=== PATIENT | female | born 1955 | race Caucasian/White ===

== ENCOUNTER 2023-12-15 09:58 | Outpatient (REF) | payer BC, MEDICARE, SELFPAY ==
--- NOTE | ~2023-12-15 | XR_ITS ---
Exam: Bilateral knees INDICATION: Bilateral knee pain COMPARISON: None TECHNIQUE: 3 views each knee FINDINGS: Right knee: No fracture or dislocation. Alignment and articulations maintained. No significant joint space narrowings. Chondrocalcinosis. Left knee: No fracture, dislocation or joint effusion. Chondrocalcinosis. XR/XR knee LT 3V IMPRESSION: No acute bony pathology bilateral knees. Bilateral chondrocalcinosis. Electronically signed by: Nae Ren MD 01/12/2024 10:12 AM EDT
--- NOTE | ~2023-12-15 | XR_ITS ---
Exam: Bilateral knees INDICATION: Bilateral knee pain COMPARISON: None TECHNIQUE: 3 views each knee FINDINGS: Right knee: No fracture or dislocation. Alignment and articulations maintained. No significant joint space narrowings. Chondrocalcinosis. Left knee: No fracture, dislocation or joint effusion. Chondrocalcinosis. XR/XR knee RT 3V IMPRESSION: No acute bony pathology bilateral knees. Bilateral chondrocalcinosis. Electronically signed by: Nae Rne MD 01/12/2024 10:12 AM EDT
== END 2023-12-15 09:59 | disposition home or self-care (01) ==
LOC: HO.HOSX 09:58
PROVIDERS: Visit Provider Orthopaedic Surgery
DX: M25.562 Pain in left knee (principal); M25.561 Pain in right knee; M11.262 Other chondrocalcinosis, left knee; M11.261 Other chondrocalcinosis, right knee
CPT/HCPCS: 20610; 73562; J1010

== ENCOUNTER 2023-12-15 13:02 | Outpatient (AMB) | payer MEDICARE, BC, SELFPAY ==
--- NOTE | 2023-12-15 13:15 | MHC.OFFVIS ---
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 Patient reports a fall about 2 months ago after she stepped off a curb, fell and landed on rocks. Her pain is constant and fluctuates in intensity. Seen at previous office where she was prescribed meloxicam with no relief. She has had cortisone injections in the past which gave her fairly relief. She is currently undergoing treatment for breast cancer and pulmonary hypertension in [place]. Allergies pseudoephedrine [From [facility]] Allergy (Verified 12/15/23 13:25) SOB [facility] Surgical History (Updated 12/15/23 @ 13:27 by JERALD Edmondson) History of partial mastectomy of right breast Social History (Updated 12/15/23 @ 13:27 by JERALD Edmondson) Patient Tobacco Use Status: Never used Tobacco Current occupational status: retired Physical Exam Const Other: Well-nourished well-developed very friendly female awake alert and oriented x3 in no acute distress Extrem Other: Bilateral lower extremity examination shows good capillary refill, no skin lesions noted, normal sensation light touch Bilateral knee examination shows minimal effusions, mild crepitus with range of motion, pain with range of motion, no instability Office Procedures Joint Injection/Aspiration Joint Injection/Aspiration Primary Site: left knee Prep: site was prepped using aseptic technique Injected: 40 mg of, DepoMedrol and 1% plain lidocaine Procedure: The patient tolerated the procedure well Coding 15852 - Large joint Procedure code (CPT) selection complete Joint Injection/Aspiration Joint Injection/Aspiration Primary Site: right knee Prep: site was prepped using aseptic technique Injected: 40 mg of, DepoMedrol and 1% plain lidocaine Procedure: The patient tolerated the procedure well Coding 94265 - Large joint Procedure code (CPT) selection complete Results Reviewed Results Reviewed: X-rays of the patient's bilateral knee show mild joint space narrowing, no acute bony abnormalities Assessment & Plan Assessment & Plan (1) Left knee pain: Code(s): M25.562 - Pain in left knee Category: Medical (2) Right knee pain: Code(s): M25.561 - Pain in right knee Category: Medical Plan Ms. Reaves presents with bilateral knee pains due to degenerative joint disease. I had a lengthy discussion with the patient regarding options. She wishes to hold off on surgery for as long as possible. I agree with this plan. The risks and benefits of bilateral knee cortisone injections were discussed at length with the patient. Patient wished to proceed. She tolerated the injections well. She will continue with her activity modifications. She will follow up with me on an as-needed basis should her symptoms not plateau at an unacceptable level over the next few months. Feel free to call me at any time should questions regarding her orthopedic management arise. I spent 21 minutes in reviewing the patient's records and imaging studies, seeing the patient and documenting in the medical record. Orders: Orders XR knee LT 3V Today M25.562 - Pain in left knee XR knee RT 3V Today M25.561 - Pain in right knee AMB Joint Injection/Aspiration Today M25.562 - Pain in left knee AMB Joint Injection/Aspiration Today M25.561 - Pain in right knee Coding Level of Care Code Est Pt Level 3 (11242) Diagnoses Left knee pain M25.562 Right knee pain M25.561 CPT Codes Coding - 56751 Large joint: 85007 - Large joint ([id number]) Coding - 55111 Large joint: 47063 - Large joint ([id number])
== END 2023-12-15 13:50 | disposition home or self-care (01) ==
PROVIDERS: PCP Internal Medicine Endocrinology, Diabetes & Metabolism; Visit Provider Orthopaedic Surgery
DX: M25.562 Pain in left knee (principal); M25.561 Pain in right knee
CPT/HCPCS: 20610; 99213

== ENCOUNTER 2024-03-22 13:01 | Outpatient (AMB) | payer BC, MEDICARE, SELFPAY ==
--- NOTE | 2024-03-22 13:15 | MHC.OFFVIS ---
Intake Visit Reasons: Left knee pain and giving way Intake Note: Elda a 68 year old female who presents with complaints of progressively worsening bilateral knee pains and giving way, left greater than right. The patient states that she 1st fell approximately 1 year ago. She twisted her left knee and had acute onset of pain. She then fell a 2nd time approximately 6 weeks ago. She states that her left knee gave out prior to her fall. She has done physical therapy exercises which aggravated her pain. She has failed the last 6 weeks of conservative treatment which has consisted of a home physical therapy program, topical creams, Tylenol and anti-inflammatory medicines. She has had cortisone injections in the past which gave her only temporary relief. She states that her left knee will give out several times per day. Allergies pseudoephedrine [From [facility]] Allergy (Verified 03/22/24 13:17) SOB Medication List - Last Reconciled 03/23/24 by Fernando Crandall MD albuterol sulfate 90 mcg/actuation inhalation atorvastatin 20 mg PO DAILY epoprostenol (Veletri) mg continuous IV infusion fluoxetine mg PO fluticasone propion-salmeterol 250-50 mcg/dose (Wixela Inhub) 1 ea inhalation BID fluticasone propionate 50 mcg/actuation sprays intranasal folic acid 1 mg PO DAILY insulin aspart U-100 (Novolog U-100 Insulin aspart) subcut insulin NPH isoph U-100 human (Novolin N NPH U-100 Insulin isophane) units subcut ipratropium-albuterol 0.5 mg-3 mg(2.5 mg base)/3 mL mL inhalation QID irbesartan 300 mg PO DAILY levothyroxine 75 mcg PO DAILY loperamide mg PO lorazepam mg PO metformin ER 1,000 mg PO BID montelukast 10 mg PO DAILY potassium citrate ER 10 mEq PO DAILY tadalafil (pulm. hypertension) 20 mg PO Q OTHER DAY tramadol 50 mg PO BID PRN valacyclovir 1,000 mg PO DAILY PFSH Surgical History History of partial mastectomy of right breast Social History Patient Tobacco Use Status: Never used Tobacco Current occupational status: retired Physical Exam Const Other: Well-nourished well-developed very friendly female awake alert and oriented x3 in no acute distress Extrem Other: Bilateral lower extremity examination shows good capillary refill, no skin lesions noted, normal sensation light touch Left knee examination shows a minimal effusion, mild crepitus with range of motion, tenderness along her medial joint line, positive Scooter's test, no instability Office Procedures AMB Joint Injection/Aspiration Joint Injection/Aspiration Primary Site: left knee Prep: site was prepped using aseptic technique Injected: 40 mg of, DepoMedrol and 1% plain lidocaine Procedure: The patient tolerated the procedure well Coding - Large joint Procedure code (CPT) selection complete Results Reviewed Results Reviewed: X-rays of the patient's bilateral knees show mild diffuse joint space narrowing, no acute bony abnormalities Assessment & Plan Assessment & Plan (1) Left knee pain: Code(s): M25.562 - Pain in left knee Category: Medical Plan Ms. Reaves presents with progressively worsening bilateral knee pains and mechanical symptoms, left greater than right, most likely due to tearing of her medial menisci. I had a lengthy discussion with the patient regarding the treatment options. The risks and benefits of a left knee cortisone injection were discussed at length with the patient. The patient wished to proceed. She tolerated the injection well. I will also send the patient for an MRI of her left knee for further evaluation. I will see her back once the MRI is completed to discuss the findings and treatment options. Feel free to call me at any time should questions regarding her orthopedic management arise. I spent 21 minutes in reviewing the patient's records and imaging studies, seeing the patient and documenting in the medical record. Orders: Orders XR knee RT 3V 03/22/24 M25.561 - Pain in right knee MR knee LT wo con Today S83.242A - Other tear of medial meniscus, current injury, left knee, initial encounter AMB Joint Injection/Aspiration 03/22/24 M25.562 - Pain in left knee XR knee LT 3V 03/22/24 M25.562 - Pain in left knee Coding Level of Care Code Est Pt Level 3 (57568) Complex EM visit Add On G2211 Diagnoses Left knee pain M25.562 CPT Codes Coding - Large joint: 16986 - Large joint ([id number])
== END 2024-03-22 13:46 | disposition home or self-care (01) ==
PROVIDERS: PCP Internal Medicine Endocrinology, Diabetes & Metabolism; Visit Provider Orthopaedic Surgery
DX: M25.562 Pain in left knee (principal)
CPT/HCPCS: 20610; 99213

== ENCOUNTER 2024-03-22 14:17 | Outpatient (REF) | payer MEDICARE, BC, SELFPAY | END 2024-03-22 14:18 | disposition home or self-care (01) | LOC: HO.HOSX 14:17 | PROVIDERS: Visit Provider Orthopaedic Surgery | DX: M25.561 Pain in right knee (principal); M25.562 Pain in left knee | CPT/HCPCS: 20610; 73562; J1010; J2003 ==

== ENCOUNTER 2024-06-21 13:13 | Outpatient (AMB) | payer MEDICARE, BC, SELFPAY ==
--- NOTE | 2024-06-21 13:17 | A.OFFVIS_ITS ---
Intake Visit Reasons: Right knee pain Intake Note: Elda a 69 year old female who presents with complaints of right knee pain. The patient was given a cortisone injection into her left knee at her last visit. She denies any left knee pain. She describes her right knee pain as sharp in nature. She has tried Tylenol and anti-inflammatory medicines which gave her minimal relief. She wishes to hold off on surgery if at all possible. Allergies pseudoephedrine [From [facility]] Allergy (Verified 06/21/24 13:17) SOB Medication List - Last Reconciled 06/21/24 by Fernando Crandall MD albuterol sulfate 90 mcg/actuation inhalation atorvastatin 20 mg PO DAILY doxycycline hyclate mg PO epoprostenol (Veletri) mg continuous IV infusion fluoxetine mg PO fluticasone propion-salmeterol 250-50 mcg/dose (Wixela Inhub) 1 ea inhalation BID fluticasone propionate 50 mcg/actuation sprays intranasal folic acid 1 mg PO DAILY insulin aspart U-100 (Novolog U-100 Insulin aspart) subcut insulin NPH isoph U-100 human (Novolin N NPH U-100 Insulin isophane) units subcut ipratropium-albuterol 0.5 mg-3 mg(2.5 mg base)/3 mL mL inhalation QID irbesartan 300 mg PO DAILY levothyroxine 75 mcg PO DAILY loperamide mg PO lorazepam mg PO metformin ER 1,000 mg PO BID montelukast 10 mg PO DAILY potassium citrate ER 10 mEq PO DAILY tadalafil (pulm. hypertension) 20 mg PO Q OTHER DAY tramadol 50 mg PO BID PRN valacyclovir 1,000 mg PO DAILY PFSH Surgical History History of partial mastectomy of right breast Social History Patient Tobacco Use Status: Never used Tobacco Current occupational status: retired Physical Exam Const Other: Well-nourished well-developed very friendly female awake alert and oriented x3 in no acute distress Extrem Other: Bilateral lower extremity examination shows good capillary refill, no skin lesions noted, normal sensation light touch Right knee examination shows a minimal effusion, palpable crepitus with range of motion, pain with range of motion, no instability Office Procedures AMB Joint Injection/Aspiration Joint Injection/Aspiration Primary Site: right knee Injected: 40 mg of, DepoMedrol and 1% plain lidocaine Procedure: The patient tolerated the procedure well Coding - Large joint Procedure code (CPT) selection complete Results Reviewed Results Reviewed: X-rays of the patient's right knee taken previously show joint space narrowing, subchondral sclerosis, bony abnormalities Assessment & Plan Assessment & Plan (1) Arthritis of right knee: Code(s): M17.11 - Unilateral primary osteoarthritis, right knee Category: Medical (2) Right knee pain: Code(s): M25.561 - Pain in right knee Category: Medical Plan Ms. Reaves presents with right knee pain due to degenerative joint disease. The risks and benefits of a right knee cortisone injection were discussed at length with the patient. The patient wished to proceed. She tolerated the injection well. She will continue with her home exercise program. She will contact me prior to her follow-up appointment in 3 months should any questions or concerns arise. Feel free to call me at any time should questions regarding her orthopedic management arise. I spent 20 minutes in reviewing the patient's records and imaging studies, seeing the patient and documenting in the medical record. Orders: Orders AMB Joint Injection/Aspiration Today M17.11 - Unilateral primary osteoarthritis, right knee Coding Level of Care Code Est Pt Level 3 (64226) Complex EM visit Add On G2211 Diagnoses Arthritis of right knee M17.11 Right knee pain M25.561 CPT Codes Coding - Large joint: 72811 - Large joint ([id number])
--- OUTSIDE RECORDS SUMMARY | 2024-06-21 14:18 | XMS_ITS | Clinical Summary ---
Author Organization [facility] Address [address] [place] [address] Care Team Providers Care Diplomatic Courier Name Role Phone Nimo Dimas MD Primary Care Provid er Allergies Active Allergy Reactions Criticality Noted Date Comments Fenofibrate 12/18/2021 Nitrofurantoin 12/18/2021 Nystatin 12/18/2021 Pseudoephedrine Palpitations,Other ( See Comments),Shortness Of Breath High 05/10/2016 Medications Medication Sig Dispensed Refills Start Date End Date Status albuterol 108 (90 Base) MCG/ACT inhaler Inhale into the lungs. 0 07/12/2018 Active Aspirin Low Dose 81 MG EC tablet Take 1 tablet (81 mg total) by mouth daily. 0 04/17/2022 Active dilTIAZem (CARDIZEM CD) 240 MG 24 hr capsule Take 1 capsule (240 mg total) by mouth daily. 0 03/18/2022 Active dulaglutide (Trulicity) 0.75 MG/0.5ML subcutaneous pen-injector Inject 0.5 mL (0.75 mg total) under the skin. 0 06/08/2017 Active empagliflozin (Jardiance) 10 MG tablet Take by mouth. 0 09/13/2021 Active FLUoxetine (PROzac) 10 MG capsule Take by mouth. 0 10/17/2021 Active fluticasone-salmeterol (Advair HFA) 115-21 MCG/ACT inhaler Inhale into the lungs. 0 11/27/2021 Active glipiZIDE (GLUCOTROL) tablet 5 mg Take by mouth. 0 10/17/2021 Active Insulin NPH Human, Isophane, (NOVOLIN N SC) Inject under the skin. 0 11/13/2021 Active ipratropium-albuterol (DUO-NEB) 0.5-2.5 mg/mL nebulizer Inhale 3 mL into the lungs. 0 10/09/2021 Active irbesartan (AVAPRO) 300 MG tablet TAKE 1 TABLET BY MOUTH ONCE DAILY DIRECTED FOR 90 DAYS 0 04/11/2022 Active levothyroxine (SYNTHROID) tablet 150 mcg Take 1 tablet (150 mcg total) by mouth. 0 11/22/2021 Active LORazepam (ATIVAN) 0.5 MG tablet Take by mouth. 0 06/08/2017 Active meloxicam (MOBIC) 15 MG tablet Take 1 tablet (15 mg total) by mouth daily. 0 04/12/2022 Active metFORMIN (GLUCOPHAGE-XR) ER 24 hr tablet 500 mg Take by mouth. 0 10/07/2021 Acti ve montelukast (SINGULAIR) 10 MG tablet Take 1 tablet (10 mg total) by mouth daily. as directed 0 03/07/2022 Active oxybutynin (DITROPAN) 5 MG tablet Take 1 tablet (5 mg total) by mouth. 0 11/15/2021 Active potassium citrate (UROCIT-K) 10 MEQ (1080 MG) SR tablet Take 1 tablet (10 mEq total) by mouth. 0 06/21/2020 Active traMADol (ULTRAM) 50 MG tablet Take 50 mg by mouth. 0 12/02/2021 Active Family History Medical History Relation Name Comments Diabetes Brother Hypertension Brother Diabetes Mother Hypertension Mother Relation Name Status Comments Brother Mother Social History Tobacco Use Types Packs/Day Years Used Date Smoking Tobacco: Never Assessed Sex and Gender Information Value Date Recorded Sex Assigned at Not on file Gender Identity Not on file Sexual Orientation Not on file Job Start Date Occupation Industry Not on file Not on file Not on file Last Filed Vital Signs Vital Sign Reading Time Taken Comments Blood Pressure - - Pulse - - Temperature - - Respiratory Rate - - Oxygen Saturation - - Inhaled Oxygen Concentration - - Weight 116.6 kg (257 lb) 05/28/2022 11:04 AM EST Height 160 cm (5' 3 ) 05/28/2022 11:04 AM EST Body Mass Index 45.53 05/28/2022 11:04 AM EST Plan of Treatment Health Maintenance Due Date Last Done Comments Hepatitis C Screening 1955 COVID-19 Vaccine (#1) 1956 Depression Screening 1968 BMI Counseling 1974 Preventative Health Evaluation 1974 DTap / Tdap / Td (1 - Tdap) 1975 Colon Cancer Screening (Colonoscopy) 2001 Breast Cancer Screening (Mammogram) 2006 Shingrix-Zoster Vaccine (1 of 2) 2006 Fall Risk Assessment 2021 Osteoporosis Screening (DEXA Scan) 2021 Pneumococcal Vaccine (2 of 2 - PPSV23 or PCV20) 2021 07/20/2019 Influenza Vaccine (#1) 2024 RSV Adult > 60+ Yrs or Pregn ant (1 - 1-dose 75+ series) 2031 Hepatitis B Vaccines Aged Out No long er eligible based on patient's age to complete this topic RSV Ped < 20 months Aged Out No longe r eligible based on patient's age to complete this topic Care Teams Diplomatic Courier Relationship Specialty Start Date End Date Nimo Dimas MD [address] [place] [address] Drive [address] [place] [address] PCP - General Gastroenterology 05/01/22
--- OUTSIDE RECORDS SUMMARY | 2024-06-21 14:18 | XMS_ITS | Data Portability ---
Author Organization [place] [facility] Ronald Nichole AONE [place] Address [address] [facility] [address] [place] [address] Care Team Providers Care Rugby League Footballer Name Role Phone ROOSEVELT GARSIA Primary Care Provider [phone] ROOSEVELT GARSIA Primary Care Provider Assessment Encounter Date Assessment Date Assessment LastModified by Organization Details LastModified Time 02/25/2023 02/25/2023 57-year-old female with ongoing right knee pain with possible meniscus tearing. I had discussion with the patient. Management. She opted for cortisone injection at today's visit. Verbal consent was obtained procedure was then carried out she tolerated this well aftercare instructions were discussed in detail. I will send her for a formal MRI for further evaluation. We will delay this by 1 week since she had a cortisone injection today. I will see her back shortly thereafter if surgical consultation is indicated I will refer her to Dr. Sainz. The patient agrees with above-noted plan. Indirect care and treatment in conjunction with Dr. Schreiber Additional treatment plan discussed with the patient (only initiated if in boldface font) otherwise not applicable. Treatment may include the following; - Provider focused nonsteroidal anti-inflammatory regimen (discussed were the pros, cons, benefits and risks as well as any black box warnings) in patients over 60 years old they should be very cautious in taking these medications due to potential decreased kidney function and or elevated blood pressure. - Analgesic pain medication for pain suppression (discussed were the pros, cons, benefits and risks as well as any black box warnings) - The use of topical pain relieving medication were discussed - The use of ice to decrease inflammation and pain - The use of assistive ambulatory devices for ambulation and fall prevention - Formal specific guided physical therapy program I reviewed my findings at length with the patient today. ? ? ?We discussed the nature and etiology of this problem along with current treatment options. We discussed the expected course and outcomes and what to expect. We also discussed risks and benefits. ? ? ? All of their questions were answered today, and there was exhibited understanding and comprehension of all that was discussed. Time Spent: 10 minutes were spent reviewing previous imaging and charting. ? ? ?10 minutes were spent obtaining patient history. ? ? ?5 minutes were spent on physical exam. ? ? ?5? ? ?minutes were spent explaining diagnosis and assessment. Today's documentation was made using voice recognition software. This note may contain grammatical errors secondary to the software. Not available 02/26/2023 08:01:27 03/18/2023 03/18/2023 This is a very pleasant 67-year-old female following up on her MRI results on her right knee she is 100% asymptomatic since her cortisone injection however. 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 This point she would like to hold off on intervention. 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 She states that she would like to have a follow-up visit which will be towards the end of March. She can certainly take [id number] pain medication if her symptoms do return and she should contact my office immediately. She agrees with this plan. Patient was seen and evaluated by Richard Montoya PA-C in indirect conjuction with Documenting Provider: Alberto Sainz MD . He/She agrees with history, physical examination, tests/diagnostic imaging, and treatment plan. Additional treatment plan discussed with the patient (only initiated if in boldface font) otherwise not applicable. Treatment may include the following; - Provider focused nonsteroidal anti-inflammatory regimen (discussed were the pros, cons, benefits and risks as well as any black box warnings) in patients over 60 years old they should be very cautious in taking these medications due to potential decreased kidney function and or elevated blood pressure. - Analgesic pain medication for pain suppression (discussed were the pros, cons, benefits and risks as well as any black box warnings) - The use of topical pain relieving medication were discussed - The use of ice to decrease inflammation and pain - The use of assistive ambulatory devices for ambulation and fall prevention - Formal specific guided physical therapy program I reviewed my findings at length with the patient today. ? ? ?We discussed the nature and etiology of this problem along with current treatment options. We discussed the expected course and outcomes and what to expect. We also discussed risks and benefits. ? ? ? All of their questions were answered today, and there was exhibited understanding and comprehension of all that was discussed. Time Spent: 10 minutes were spent reviewing previous imaging and charting. ? ? ?10 minutes were spent obtaining patient history. ? ? ?5 minutes were spent on physical exam. ? ? ?5? ? ?minutes were spent explaining diagnosis and assessment. Today's documentation was made using voice recognition software. This note may contain grammatical errors secondary to the software. 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 She is treated conservatively she has been asymptomatic should her symptoms return she will contact our office no treatment at today's visit. She agrees to this plan. Patient was seen and evaluated by Richard Montoya PA-C in indirect conjuction with Documenting Provider: Jose Schreiber MD . He/She agrees with history, physical examination, tests/diagnostic imaging, and treatment plan. Additional treatment plan discussed with the patient (only initiated if in boldface font) otherwise not applicable. Treatment may include the following; - Provider focused nonsteroidal anti-inflammatory regimen (discussed were the pros, cons, benefits and risks as well as any black box warnings) in patients over 60 years old they should be very cautious in taking these medications due to potential decreased kidney function and or elevated blood pressure. - Analgesic pain medication for pain suppression (discussed were the pros, cons, benefits and risks as well as any black box warnings) - The use of topical pain relieving medication were discussed - The use of ice to decrease inflammation and pain - The use of assistive ambulatory devices for ambulation and fall prevention - Formal specific guided physical therapy program I reviewed my findings at length with the patient today. ? ? ?We discussed the nature and etiology of this problem along with current treatment options. We discussed the expected course and outcomes and what to expect. We also discussed risks and benefits. ? ? ? All of their questions were answered today, and there was exhibited understanding and comprehension of all that was discussed. Time Spent: 10 minutes were spent reviewing previous imaging and charting. ? ? ?10 minutes were spent obtaining patient history. ? ? ?5 minutes were spent on physical exam. ? ? ?5? ? ?minutes were spent explaining diagnosis and assessment. Today's documentation was made using voice recognition software. This note may contain grammatical errors secondary to the software. Not available 06/03/2023 10:55:31 10/29/2023 10/29/2023 68-year-old female with right knee pain. History, examination and x-rays are consistent with contusion of right knee superimposed on degenerative changes of both medial and lateral meniscus. She is clinically showing signs of improvement. After discussion regarding treatment options she will be provided a prescription for meloxicam to use as an alternative to the ibuprofen. She declines my offer of physical therapy and follow up since she is dealing with a range of other major medical issues. Follow-up therefore is as needed. This patient was seen and evaluated by Richard Stevenson MS, PA-C in indirect conjunction with documenting/super vising provider Jose Schreiber MD. He agrees with history, physical examination, tests/diagnostic imaging, and treatment plan. This document was generated using voice recognition software. As a result, there may be unintended spelling, grammatical and/or textual errors. Not available 10/29/2023 10:55:25 Plan of Treatment Reminders Order Date Submit Date Provider Last Modified By Organization Details Last Modified Time Details Appointments None recorded. Lab None recorded. Referral None recorded. Procedures None recorded. Surgeries None recorded. Imaging XR, knee, 4 or more view 2022 023 [email or web address] 2 [facility], [address], [place], [address], 3 12:38:21 MRI, knee, w/o contrast - R/O Meniscus tear. Pt had Cortisone inj on 02/25/2023 (Delay MRI 1 week from this date) 2022 023 [facility], [address], [place], [address], 3 14:07:10 XR, knee, 4 or more view 2023 024 [email or web address] 2 [facility], [address], [place], [address], 4 10:52:28 Medication Orders Kenalog 40 mg/mL suspension for injection [facility]22 [id number] [phone] [place], [address], 3 10:32:46 lidocaine (PF) 10 mg/mL (1 %) injection solution 2022 023 [id number], [phone] [place], [address], 3 10:32:51 meloxicam 15 mg tablet 2023 024 [facility] #[id number], [phone] [place], [address], 4 10:55:43 Patient TargetsNo targets recorded. Patient Instructions Encounter Date Encounter Id Patient Instructions Last Modified By Organization Details Last Modified Time 02/25/2023 [id number] You have been provided with a cortisone injection in order to reduce the pain and inflammation that you are experiencing. The injection consists of two medications. Cortisone (an anti-inflammatory that will take 48-72 hours to take effect) and Lidocaine (a numbing agent that will last 2-3 hours). Please note that not everyone will have a lasting response following the injection. PATIENT INSTRUCTIONS Once the Lidocaine wears off, you may have an increase in your pain. I recommend icing the affected area for 20 minutes 3-4 times per day. It is recommended that you refrain from any high level activities using the joint or limb that was injected for approximately 24-48 hours. Normal day-to-day activities are generally not a problem. POSSIBLE SIDE EFFECTS Individuals with dark complexions may experience some skin discoloration locally at the site of the injection. There is the possibility of an increase in discomfort within 48 hours following the injection. This is called a ? f lare? . To help minimize the chances of this, please see the post-injection instructions above. There is a less than 1% chance of an infection. If you notice any signs of infection (redness, warmth, drainage, fever greater than 100 degrees) please call our office or contact us through the portal MARCY. Not available 02/26/2023 08:01:45 X-rays at today' s visit reveal well-maintained joint space subtle chondrocalcinosis on AP and Flynn view, lateral view well-maintained joint space within the patellofemoral compartment as well as on sunrise view. No acute bony abnormality. Not available 02/26/2023 08:02:51 10/29/2023 [id number] {{2 3 4 5 6 7* 8 9}} view X-ray study obtained during today's office encounter show evidence of {{mild* moderate celi re}} {{right left bilatera l*}} {{hip knee*}} osteoarthritis. There is joint space narrowing, subchondral sclerosis and marginal osteophytosis. Kellgren-Gilbert grade {{0 1* 2 3 4}}. No evidence of acute fracture or osteolytic findings. From a trauma standpoint, there is no evidence for fracture or dislocation. Not available 10/29/2023 10:54:22 Reason for Referral None Reported. Results Created Date Observation Date Name Description Value Unit Range Abnormal Flag Note LastModifiedBy Organization Detail LastModifiedTime 03/06/20 23 MRI, knee, w/o contr ast No observ ation record ed. [email or web address] [facility] [address] [facility], [place], [address], 03/06/2023 14:07:10 Result Notes None recorded. Problems Name Problem SNOMED Code Status Onset Date Resolution Date Notes Provider Name and Address Organization Details Recorded Time Chronic instability of right knee joint [id number] 06 Active 2022 RICHARD MONTOYA PA-C [address], [place], [address], [place] [facility] 3 11:22:27 Derangement of medial meniscus 229892098 Active 2022 RICAHRD MONTOYA PA-C [address], [place], [address], [place] [facility] 3 10:51:12 Contusion of right knee 0111035991119 9104 Active 2023 RICHARD STEVENSON PA-C [address], [place], [address], [place] [facility] 4 10:55:25 Problem Notes None recorded. Procedures Surgical History Date Name Laterality Status Provider Name and Address Organization Details Recorded Time 3 Knee Joint/Bursa Asp & Inj completed RICHARD MONTOYA PA-C [address], [place], [address], [place] [facility] 02/26/2023 07:59:31 section completed Caty Romero [place] - [facility] 02/25/2023 16:19:25 Imaging Results Imaging Date Name Status LastModified by Organiz ation Details LastModified Time 03/06/2023 MRI, knee, w/o contrast completed [email or web address] [facility] [address] [place], [address], 03/06/2023 14:07:10 Procedure Notes None recorded. Medical Equipment None Reported. Allergies Allergen ID Allergen Name Allergen Category Reaction Reaction Severity Criticality Documentation Date Start Date Code Code System Note Provider Name and Address Organization Details Recorded Time 9222 Sudafed medicatio n Not available Not available Not available 02/25/2023 2 RxNorm Caty Chase [facility], [place] [facility] 3 16:12:40 Medications Name Sig Start Date Stop Date Status Note LastModified by Organization Details LastModified Time prednisone 10 mg tablet PLEASE SEE ATTACHED FOR DETAILED DIRECTION S 03/18 completed Not Available Not Available Not Available doxycycline hyclate 100 mg capsule TAKE 1 CAPSULE BY MOUTH TWICE A DAY FOR 5 DAYS 06/03 completed Not Available Not Available Not Available atorvastati n 20 mg tablet TAKE 1 TABLET BY MOUTH EVERY DAY active Not Available Not Available No t Available ipratropium 0.5 mg-albutero l 3 mg (2.5 mg base)/3 mL nebulizatio n soln INHALE THE CONTENTS OF 1 VIAL VIA NEBULIZER 4 TIMES DAILY. J45.909 active Not Available Not Available No t Available azithromyci n 250 mg tablet TAKE 2 TABLETS BY MOUTH TODAY, THEN TAKE 1 TABLET DAILY FOR 4 DAYS DIRECTED active Not Available Not Available No t Available Novolin N NPH U-100 Insulin isophane 100 unit/mL subcutaneou s susp INJECT 20 UNITS SUBCUTANE SOULY EVERY DAY IN THE MORNING AND 60 UNITS EVERY DAY IN THE EVENING. active Not Available Not Available No t Available diltiazem CD 240 mg capsule,ext ended release 24 hr TAKE 1 CAPSULE BY MOUTH EVERY DAY 03/18 completed Not Available Not Available Not Available meloxicam 15 mg tablet TAKE 1 TABLET EVERY DAY BY ORAL ROUTE NEEDED. active Not Available Not Available No t Available prednisone 20 mg tablet TAKE 2 TABLETS BY MOUTH DAILY FOR 5 DAYS 10/28 completed Not Available Not Available Not Available aspirin 81 mg tablet,scooter yed release TAKE 1 TABLET BY MOUTH EVERY DAY 10/28 completed Not Available Not Available Not Available tramadol 50 mg tablet TAKE 1 TABLET BY MOUTH EVERY 6 HOURS NEEDED FOR PAIN FOR 3 DAYS active Not Available Not Available No t Available levothyroxi ne 75 mcg tablet TAKE 1 TABLET BY MOUTH EVERY DAY active Not Available Not Available No t Available Kenalog 40 mg/mL suspension for injection Take 1 mL by injection route. 03/18 completed Not Available Not Available Not Available lorazepam 0.5 mg tablet TAKE 1 TABLET BY MOUTH TWICE A DAY NEEDED. MAX DAILY DOSE 2 TABS active Not Available Not Available No t Available Platform Orthopedic SolutionsTouch Ultra Test strips USE TO TEST BLOOD SUGAR TWICE A DAY DIRECTED active Not Available Not Available No t Available potassium citrate ER 10 mEq (1,080 mg) tablet,exte nded release TAKE 1 TABLET BY MOUTH TWICE A DAY active Not Available Not Available No t Available benzonatate 100 mg capsule TAKE 1 CAPSULE BY MOUTH THREE TIMES A DAY NEEDED FOR COUGH FOR 5 DAYS 10/28 completed Not Available Not Available Not Available hydrocortis one 1 % topical cream active Not Available Not Available Not Available cephalexin 500 mg capsule TAKE 1 CAPSULE BY MOUTH TWICE A DAY FOR 7 DAYS active Not Available Not Available No t Available oseltamivir 75 mg capsule TAKE 1 CAPSULE BY MOUTH TWICE A DAY FOR 5 DAYS 03/18 completed Not Available Not Available Not Available neomycin-po lymyxin-dex ameth 3.5 mg/mL-10,00 0 unit/mL-0.1 % eye drops INSTIL 1 DROP INTO BOTH EYES 4 TIMES A DAY FOR 5 DAYS 03/18 completed Not Available Not Available Not Available fluoxetine 10 mg capsule TAKE 2 CAPS BY MOUTH EVERY DAY DIRECTED active Not Available Not Available No t Available hydrocortis one 2.5 % topical cream TAKE 1 APPLICATI ON (TOPICAL) 3 TIMES PER DAY ( NEEDED - SKIN IRRITATIO N) FOR 14 DAYS 03/18 completed Not Available Not Available Not Available montelukast 10 mg tablet TAKE 1 TABLET BY MOUTH EVERY DAY DIRECTED active Not Available Not Available No t Available hydroxyzine HCl 25 mg tablet TAKE 1 TABLET BY MOUTH 3-4 TIMES PER DAY NEEDED FOR ITCHING FOR 5 DAYS 03/18 completed Not Available Not Available Not Available furosemide 20 mg tablet TAKE 1 CAPSULE BY MOUTH ONCE DIRECTED 03/18 completed Not Available Not Available Not Available Novolog U-100 Insulin aspart 100 unit/mL subcutaneou s solution USE 6 TO 14 UNITS SUBCUTANE OUSLY BEFORE MEALS 3 TIMES A DAY active Not Available Not Available No t Available methylpredn isolone 4 mg tablets in a dose pack TAKE 6 TABLETS ON DAY 1 DIRECTED ON PACKAGE AND DECREASE BY 1 TAB EACH DAY FOR A TOTAL OF 6 DAYS 03/18 completed Not Available Not Available Not Available albuterol sulfate HFA 90 mcg/actuati on aerosol inhaler INHALE 2 PUFFS EVERY 6 HOURS NEEDED active Not Available Not Available No t Available ondansetron 4 mg disintegrat ing tablet TAKE 1 TABLET BY MOUTH EVERY 6 HOURS NEEDED FOR NAUSEA AND VOMITING FOR 3 DAYS 03/18 completed Not Available Not Available Not Available fluticasone propionate 50 mcg/actuati on nasal spray,suspe nsion USE 1 SPRAY IN EACH NOSTRIL TWICE A DAY active Not Available Not Available No t Available metformin ER 500 mg tablet,exte nded release 24 hr TAKE 2 TABLETS BY MOUTH TWICE A DAY DIRECTED active Not Available Not Available No t Available doxycycline hyclate 100 mg tablet TAKE 1 TABLET (ORAL) 2 TIMES PER DAY FOR 10 DAYS LIMITS SUN EXPOSURE WHILE ON THIS ANTIBIOTI C 06/03 completed Not Available Not Available Not Available irbesartan 300 mg tablet TAKE 1 TABLET BY MOUTH ONCE DAILY DIRECTED FOR 90 DAYS active Not Available Not Available No t Available glipizide 5 mg tablet TAKE 2 TABLETS BY MOUTH TWICE A DAY 10/28 completed Not Available Not Available Not Available amoxicillin 875 mg-potassiu m clavulanate 125 mg tablet TAKE 1 TABLET BY MOUTH TWICE A DAY FOR 7 DAYS 03/18 completed Not Available Not Available Not Available amoxicillin 500 mg-potassiu m clavulanate 125 mg tablet TAKE 1 TABLET BY MOUTH EVERY 12 HOURS FOR 10 DAYS 03/18 completed Not Available Not Available Not Available DILT-XR 240 mg capsule, extended release TAKE 1 CAPSULE BY MOUTH EVERY DAY 10/28 completed Not Available Not Available Not Available alprazolam 0.25 mg disintegrat ing tablet TAKE 1 TABLET BY MOUTH DAILY NEEDED (TEMPORAR Y REPLACEME NT FOR LORAZEPAM ) 10/28 completed Not Available Not Available Not Available lidocaine (PF) 10 mg/mL (1 %) injection solution Take 2 mL by injection route. 03/18 completed Not Available Not Available Not Available BD Insulin Syringe Ultra-Fine 1 mL 30 gauge x 1/2 USE SYRINGES TO INJECT INSULIN FOUR TIMES DAILY DX: E11.9 active Not Available Not Available No t Available Advair HFA 115 mcg-21 mcg/actuati on aerosol inhaler INHALE 2 PUFFS TWICE A DAY active Not Available Not Available No t Available Jardiance 10 mg tablet TAKE 1 TABLET BY MOUTH EVERY DAY 03/18 completed Not Available Not Available Not Available Jardiance 25 mg tablet TAKE 1 TABLET BY MOUTH EVERY DAY active Not Available Not Available No t Available tadalafil 20 mg tablet (pulmonary hypertensio n) active Not Available Not Available Not Available Wixela Inhub 250 mcg-50 mcg/dose powder for inhalation INHALE 1 PUFF TWICE A DAY *RINSE MOUTH AND THROAT AFTER* active Not Available Not Available No t Available Trulicity 3 mg/0.5 mL subcutaneou s pen injector INJECT 1 PEN SUBCUTANE OUSLY EVERY WEEK active Not Available Not Available No t Available Trulicity 4.5 mg/0.5 mL subcutaneou s pen injector INJECT 1 PEN SUBCUTANE OUSLY ONCE WEEKLY. active Not Available Not Available No t Available Vitals Date Recorded Body height Provider Name an d Address Organization Details Last Updated DateTime 03/18/2023 175.26 cm [facility] 03/18/2023 10:35:20 Date Recorded Body height Body mass index (BMI) Body weight Provider Name and Address Organization Details Last Updated DateTime 02/25/2023 236.22 cm 20.9 kg/m2 102667.24 g [facility] 02/25/2023 16:15:39 Social History Question Answer Notes LastModified by Organizat ion Details LastModified Time Tobacco Smoking Status Never Smoker [facility] 02/25/2023 16:16:04 What Is Your Level Of Alcohol Consumption? None Information not available 02/25/2023 Do You Use Any Illicit Or Recreational Drugs? No Information not available 02/25/2023 Do You Or Have You Ever Used Any Other Forms Of Tobacco Or Nicotine? No Information not available 02/25/2023 Sex: Unknown Functional Status None recorded. Mental Status None recorded. Family History Relationship Description Onset Age of this Age Resolved Age Notes LastModified by Organization Details LastModified Time Father Complication of anesthesia Not available 02/25 16:16:54 Father Arthritis Not available 02/25/2023 16:17:02 Mother Diabetes mellitus Not available 2022 16:17:13 Mother Hypercholest erolemia Not available 2022 16:17:24 Mother Hypertensive disorder Not available 2022 16:17:35 Brother Diabetes mellitus Not available 2022 16:17:13 Brother Hypertensive disorder Not available 2022 16:17:35 Medical History Condition Response Hypothyroidism Y Diabetes Y Asthma Y Hypertension Y Gynecological HistoryNo gynecological history recorded. Obstetrics History GPAL:G 0 P 0 0 0 0 Past Encounters Encounter ID Performer Location Encounter Start Date Encounter Closed Date Diagnosis/Indication Diagnosis SNOMED-CT Code Diagnosis ICD10 Code Diagnosis Note [id number] MD CARLOS Lucas [facility] [address] [facility] [address] [place] [address] 02/25/2023 10:35:45 02/25/2023 11:25:50 Pain of right knee joint [id number] 77391 M25.561 Chronic in stability of right knee joint 1260622782 60698 M23.51 [id number] MD CARLOS [facility] [address] [facility] [address] [place] [address] 03/18/2023 10:27:30 03/18/2023 10:41:33 Derangement of medial meniscus 625474181 M23.309 [id number] MD CARLOS Lucas [facility] [address] [facility] [address] [place] [address] 06/03/2023 10:39:16 06/03/2023 11:22:06 Follow-up orthopedic assessment [id number] Z47.89 [id number] MD CARLOS Lucas [facility] [address] [facility] [address] [place] [address] 10/29/2023 10:10:01 10/29/2023 10:52:28 Pain of right knee joint [id number] 10959 M25.561 Additional diagnosis detail: Pain in joint of right knee Contusion of right knee [id number] S80.01XA Additional diagnosis detail: Contusion of right knee, initial encounter Health Concerns Section Related Observation LastModified by Organization Detai ls LastModified Time None Recorded Concern Status LastModified by Organization Details LastModified Time None Recorded Advance Directives Directive None Recorded Payers Encounter Date Sequence Insurance Name Policy Number Policy Praod Covered Member ID Prado Member ID Guarantor Name 02/25/2023 1 MEDICARE B-MS: [employer] Dia Reaves [id number] Dia Reaves 02/25/2023 2 [facility]: [employer] Sami Reaves [id number] Dia Reaves 03/18/2023 1 MEDICARE B-MS: [facility] Dia Reaves [id number] Dia Reaves 03/18/2023 2 [facility]-MS: [employer] Sami Reaves [id number] Dia Reaves 06/03/2023 1 MEDICARE B-MS: [facility] Dia Reaves [id number] Dia Reaves 06/03/2023 2 [place] [employer] Sami Reaves [id number] Dia Reaves 10/29/2023 1 MEDICARE B-MS: [facility] Dia Reaves [id number] Dia Reaves 10/29/2023 2 [place] [employer] Sami Reaves [id number] Dia Reaves Notes Date Note Type Note Provider Name and Address Organization Details Recorded Time 02/25/2023 text/html 67-year-old fema le right knee pain cortisone injection aspiration on 05/28/2022. She states this gave her good relief. She states she did twist her knee in November which is exacerbated her instability symptoms. She is able to weight-bear without difficulty taking [id number] pain medication here for follow-up evaluation of possible cortisone injection. X-rays at today's visit reveal well-maintained joint space subtle chondrocalcinosis on AP and Flynn view, lateral view well-maintained joint space within the patellofemoral compartment as well as on sunrise view. No acute bony abnormality. RICHARD MONTOYA PA-C [address] [place] [address], [phone], [place] - [facility] 02/26/2023 08:02:59 03/18/2023 text/html Assessment & Milena n: Date of visit [id number] female with ongoing right knee pain with possible meniscus tearing. I had discussion with the patient. Management. She opted for cortisone injection at today's visit. Verbal consent was obtained procedure was then carried out she tolerated this well aftercare instructions were discussed in detail.I will send her for a formal MRI for further evaluation. We will delay this by 1 week since she had a cortisone injection today. I will see her back shortly thereafter if surgical consultation is indicated I will refer her to Dr. Sainz. The patient agrees with above-noted plan. HPI: Pleasant 67-year-old female here for follow-up on her MRI results of her right knee. Patient was seen on the above-noted date had cortisone and injection. She states 100% relief of her symptoms. Here for follow-up. [facility] [id number] [place] [address] Patient: DIA REAVES Caio Garvin/Age/Sex: 1955 - 67 - FUnit#: [id number] Location/Status: SPDIMRI/REG CLIAccount#: [id number] Mnemonic/[facility]ing [facility]Ordering Physician: RICHARD MONTOYA __MR Knee RT WO - 03/06/23 -Report Status:SignedINDICATION : CHRONIC INSTABILITY OF RIGHT KNEE JOINT evaluate for meniscaltear. History of CORTISONE injection on 02/25/2023.COMPARISON: NoneTECHNIQUE: Multiplanar, multisequence MRI examination was performed of theRIGHT knee without intravenous contrast.FINDINGS: Scan sensitivity is degraded due to patient motion.Menisci:Horizont al, globular signal involving the body and posterior hornof the lateral meniscus either representing degenerative signal and/ordegenerative tear with mild meniscal extrusion. Nonspecific signal is seeninvolving the posterior horn of the medial meniscus which either representsvascular signal or degenerative signal. No definite medial meniscal tear.Ligaments:Grade 1 MCL sprain. ACL, PCL and LCL complex are intact.Tendons:Quadrice ps mechanism and popliteus tendon are intact.Bones:Mild lateral patellar tilt. No acute fracture or dislocation of theright knee. The bone marrow signal is heterogeneous. Quadriceps tendonenthesophyte formation.Cartilage:Pat ellofemoral:Focal area of oblique and superficial fissuring involvingthe lateral patellar facet. Mild thinning of the trochlear cartilage.Medial tibiofemoral:PreservedL ateral tibiofemoral:PreservedM iscellaneous:Right knee joint fluid, some of which may be due to recentintra-articular injection. No intra-articular body. Mild subcutaneous softtissue swelling is noted of the right knee.IMPRESSION:1. Degenerative signal and/or degenerative tear involving the body andposterior horn of the lateral meniscus2. Vascular versus degenerative signal involving the posterior horn of themedial meniscus3. Grade 1 MCL sprainDictating Physician: MARK DANIELS MDElectronically Signed by: MARK DANIELS MDDic Date/Time: 03/06/23 1109Sign date/Time: 03/06/23 1130 RICHARD MONTOYA PA-C [address] [facility],[address], [place], [phone], [place] - [facility] 03/18/2023 10:54:13 06/03/2023 text/html 68-year-old fema teresa here for scheduled follow-up. History of degenerative tear involving the body and posterior horn of the lateral meniscus, degenerative signal to the posterior horn of the medial meniscus and grade 1 MCL sprain. This was treated conservatively on 02/25/2023 with cortisone injection which she has been completely asymptomatic here for scheduled follow-up. RICHARD MONTOYA PA-C [address] [facility],[address], [place], [phone], [place] - [facility] 06/03/2023 10:56:02 10/29/2023 text/html 68-year-old chelly moore presents with chief complaint of right knee pain. She reports that approximately 3 weeks ago she stepped off a curb that was higher than she expected onto a gravelly surface causing her to fall striking the right knee down on the ground. This caused pain and anterior abrasions. She denies any swelling. She was able to full weight-bear immediately after the injury. She has experienced some improvement since the time of the original trauma. 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 She received a cortisone injection soon before that MRI. It helped to improve her symptoms to where she was effectively pain-free up until this most recent trauma. RICHARD STEVENSON PA-C [address] [place] [address],[place] [address], [place], [phone], [place] - [facility] 10/29/2023 10:56:11 OBGyn Episode No OBEpisode recorded.
--- OUTSIDE RECORDS SUMMARY | 2024-06-21 14:18 | XMS_ITS | Clinical Summary ---
Author Organization Unknown Care Team Providers Care Operations Section Manager Name Role Phone TERELL BARON OTHER, ROOSEVELT Unavailable Un available TYLER CHANNELER RUNNER, ROOSEVELT Unavailable Unavailable BABITA PT, TEJAS Unavailable Unavailable SPAFFORD OT, KAI Unavailable Unavailable MBURU INSPECTOR AGRICULTURAL COMMODITIES, LLOYD Unavailable Unavailable CONDINO LUIS FELIPE/RUSH, XIMENA Unavailable Unav carol ann DOLL RN, JARAD Unavailable Unavailable Payers Payer Name Policy Type Policy Number Effective Date Expira tion Date MEDICARE.NGS.PDGM [id number] Problems Condition Name Condition Details Condition Category Status Onset Date Resolution Date Last Treatment Date Treating Clinician Comments ENCOUNTER FOR ADJUSTMENT AND MANAGEMENT OF VAD Active 805 00:00: 00 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 Active 5-17 00:00: 00 HYPERTENSIVE HEART DISEASE WITH HEART FAILURE Active 604 00:00: 00 RIGHT HEART FAILURE, UNSPECIFIED Active 08-18 00:00: 00 PULMONARY HYPERTENSION , UNSPECIFIED Active 08-18 00:00: 00 CHRONIC OBSTRUCTIVE PULMONARY DISEASE, UNSPECIFIED Active 6-04 00:00: 00 TYPE 2 DIABETES MELLITUS WITHOUT COMPLICATION S Active 05-11 00:00: 00 RESPIRATORY FAILURE, UNSPECIFIED WITH HYPOXIA Active 08-09 00:00: 00 OBSTRUCTIVE SLEEP APNEA (ADULT) (PEDIATRIC) Active 05-11 00:00: 00 MORBID (SEVERE) OBESITY DUE TO EXCESS CALORIES Active 05-11 00:00: 00 HYPOTHYROIDI SM, UNSPECIFIED Active 05-11 00:00: 00 HYPERLIPIDEM IA, UNSPECIFIED Active 05-11 00:00: 00 FELT CARBONIZER (CURRENT) USE OF INSULIN Active 08-18 00:00: 00 LNG TRM (CRNT) USE INJECTABLE NON-INSULIN ANTIDIABETIC DRUGS Active 08-18 00:00: 00 FELT CARBONIZER (CURRENT) USE OF ORAL HYPOGLYCEMIC DRUGS Active 08-18 00:00: 00 LONG-TERM (CURRENT) USE OF ASPIRIN Active 08-18 00:00: 00 DEPENDENCE ON SUPPLEMENTAL OXYGEN Active 08-18 00:00: 00 LONG-TERM (CURRENT) USE OF INHALED STEROIDS Active 08-18 00:00: 00 Allergies, Adverse Reactions, Alerts Allergy Name Allergy Type Status Severity Reaction(s) Onset Date Inactive Date Treating Clinician Comments SUDAFED Propensity to adverse reactions Active 2023-08 16:24:0 0 Medications Ordered Medication Name Filled Medication Name Start Date Stop Date Current Medication? Ordering Clinician Indication Dosage Frequency Signature (SIG) Comments Components lorazepam 0.5 mg tablet 08-05 00:00: 00 Yes [id number] ANXIETY 1 tablet EVERY 4 HOURS 1 tablet EVERY 4 HOURS (route: oral) Med Classific ation: Central Nervous System Agents Wixela Inhub 250 mcg-50 mcg/dose powder for inhalation 07-27 00:00: 00 Yes [id number] ASTHMA 1 inhalat ion TWICE A DAY 1 inhalation TWICE A DAY (route: inhalation ) Med Classific ation: Respirato ry Therapy Agents Humulin N NPH U-100 Insulin (isophane susp) 100 unit/mL [facility] s 08-18 00:00: 00 Yes [id number] DIABETES 30 unit DAILY 30 unit DAILY (route: subcutaneo us) Med Classific ation: Endocrine Humulin N NPH U-100 Insulin (isophane susp) 100 unit/mL [facility] s 08-18 00:00: 00 10-12 23:59 :00 No [id number] DIABETIC 60 unit DAILY 60 unit DAILY (route: subcutaneo us) Med Classific ation: Endocrine ipratropium 0.5 mg-albutero l 3 mg (2.5 mg base)/3 mL nebulizatio n soln 08-18 00:00: 00 Yes [id number] ASTHMA 3 mL 2 TIMES DAILY 3 mL 2 TIMES DAILY (route: inhalation ) Med Classific ation: Respirato ry Therapy Agents melatonin 10 mg tablet 08-18 00:00: 00 02-09 23:59 :00 No [id number] INSOMNIA 1 tablet BEDTIME 1 tablet BEDTIME (route: oral) Med Classific ation: Central Nervous System Agents Novolog U-100 Insulin aspart 100 unit/mL subcutaneou s solution 08-18 00:00: 00 02-09 23:59 :00 No [id number] DIABETES 2 unit 2 TIMES DAILY 2 unit 2 TIMES DAILY (route: subcutaneo us) Med Classific ation: Endocrine O2 - OXYGEN 08-18 00:00: 00 10-12 23:59 :00 No [id number] ASTHMA 2 Liter O2 - CONTINUOUS 2 Liter O2 - CONTINUOUS (route: Oxygen) Med Classific ation: Medical Oxygen OXYGEN 08-18 00:00: 00 Yes [id number] ASTHMA 4 Liter BEDTIME 4 Liter BEDTIME (route: Oxygen) Med Classific ation: Medical Oxygen Veletri 1.5 mg intravenous solution 08-18 00:00: 00 10-12 23:59 :00 No [id number] PULMONARY HTN 2 vial DAILY 2 vial DAILY (route: intravenou s) Med Classific ation: Cardiovas cular Therapy Agents albuterol sulfate HFA 90 mcg/actuati on aerosol inhaler 08-18 00:00: 00 Yes [id number] SOB 2 puff EVERY 6 HOURS 2 puff EVERY 6 HOURS (route: inhalation ) Med Classific ation: Respirato ry Therapy Agents atorvastati n 20 mg tablet 08-18 00:00: 00 Yes [id number] CHOLESTEROL 1 tablet BEDTIME 1 tablet BEDTIME (route: oral) Med Classific ation: Cardiovas cular Therapy Agents fluoxetine 10 mg capsule 08-18 00:00: 00 Yes [id number] ANXIETY 3 capsule DAILY 3 capsule DAILY (route: oral) Med Classific ation: Central Nervous System Agents Jardiance 25 mg tablet 08-18 00:00: 00 01-25 23:59 :00 No [id number] DM 1 tablet DAILY 1 tablet DAILY (route: oral) Med Classific ation: Endocrine levothyroxi ne 75 mcg tablet 08-18 00:00: 00 Yes [id number] HYPOTHYROID ISM 1 tablet DAILY 1 tablet DAILY (route: oral) Med Classific ation: Endocrine metformin 500 mg tablet 08-18 00:00: 00 01-25 23:59 :00 No [id number] DIABETES 2 tablet 2 TIMES DAILY 2 tablet 2 TIMES DAILY (route: oral) Med Classific ation: Endocrine montelukast 10 mg tablet 08-18 00:00: 00 10-12 23:59 :00 No [id number] ASTHMA 2 tablet BEDTIME 2 tablet BEDTIME (route: oral) Med Classific ation: Respirato ry Therapy Agents Trulicity 3 mg/0.5 mL subcutaneou s pen injector 08-18 00:00: 00 01-25 23:59 :00 No [id number] DIABETES .5 mL WEEKLY .5 mL WEEKLY (route: subcutaneo us) Med Classific ation: Endocrine hydrocortis one 1 % lotion 09-24 00:00: 00 Yes [id number] RASH ABOVE LEFT CHEST PORT Per instruc tions 2 TIMES DAILY Per instructio ns 2 TIMES DAILY (route: topical) Med Classific ation: Dermatolo gical tramadol 50 mg tablet 09-24 00:00: 00 10-12 23:59 :00 No [id number] SEVERE PAIN 1 tablet EVERY 8 HOURS 1 tablet EVERY 8 HOURS (route: oral) Med Classific ation: Analgesic , Anti-infl ammatory or Antipyret ic Kayla Allergy 180 mg tablet 10-17 00:00: 00 Yes [id number] ALLERGIES 1 tablet DAILY 1 tablet DAILY (route: oral) Med Classific ation: Respirato ry Therapy Agents Humulin N NPH U-100 Insulin (isophane susp) 100 unit/mL subcutaneou s 10-17 00:00: 00 02-09 23:59 :00 No [id number] DM 60 unit DAILY 60 unit DAILY (route: subcutaneo us) Alternate Route: SUBCUTANE OUS. Med Classific ation: Endocrine montelukast 10 mg tablet 10-17 00:00: 00 Yes [id number] ASTHMA 1 tablet BEDTIME 1 tablet BEDTIME (route: oral) Med Classific ation: Respirato ry Therapy Agents OXYGEN 10-17 00:00: 00 Yes [id number] BREATHING 2.5 Liter O2 - CONTINUOUS 2.5 Liter O2 - CONTINUOUS (route: Oxygen) Med Classific ation: Medical Oxygen Veletri 1.5 mg intravenous solution 10-17 00:00: 00 02-09 23:59 :00 No [id number] PULMONARY HTN 3 vial DAILY 3 vial DAILY (route: intravenou s) Med Classific ation: Cardiovas cular Therapy Agents meloxicam 15 mg tablet 10-28 00:00: 00 02-09 23:59 :00 No [id number] KNEE PAIN 1 tablet DAILY 1 tablet DAILY (route: oral) Med Classific ation: Analgesic , Anti-infl ammatory or Antipyret ic tadalafil 20 mg tablet 11-04 00:00: 00 11-11 23:59 :00 No [id number] PULMONARY HTN 2 tablet BEDTIME 2 tablet BEDTIME (route: oral) Med Classific ation: Drugs to treat Erectile Dysfuncti on tadalafil 20 mg tablet 11-11 00:00: 00 02-09 23:59 :00 No [id number] PULMONARY HYPOTENSION 1 tablet BEDTIME 1 tablet BEDTIME (route: oral) Med Classific ation: Drugs to treat Erectile Dysfuncti on colestipol 1 gram tablet 12-16 00:00: 00 Yes [id number] DIARRHEA 2 tablet 2 TIMES DAILY 2 tablet 2 TIMES DAILY (route: oral) Med Classific ation: Cardiovas cular Therapy Agents ondansetron HCl 4 mg tablet 12-16 00:00: 00 Yes [id number] NAUSEA 1-2 tablet EVERY 8 HOURS 1-2 tablet EVERY 8 HOURS (route: oral) Med Classific ation: Gastroint estinal Therapy Agents prochlorper azine maleate 5 mg tablet 12-16 00:00: 00 Yes [id number] NAUSEA 1-2 tablet EVERY 6 HOURS 1-2 tablet EVERY 6 HOURS (route: oral) Med Classific ation: Gastroint estinal Therapy Agents cephalexin 250 mg tablet 12-23 00:00: 00 01-01 23:59 :00 No [id number] ERYTHEMA 1 tablet 4 TIMES DAILY 1 tablet 4 TIMES DAILY (route: oral) Med Classific ation: Anti-Infe ctive Agents clobetasol- emollient 0.05 % topical cream 12-23 00:00: 00 12-29 23:59 :00 No [id number] ERYTHEMA Per instruc tions 2 TIMES DAILY Per instructio ns 2 TIMES DAILY (route: topical) Med Classific ation: Dermatolo gical Benadryl Allergy 50 mg tablet 12-27 00:00: 00 02-09 23:59 :00 No [id number] REDNESS, WARMTY 1 tablet 3 TIMES DAILY 1 tablet 3 TIMES DAILY (route: oral) Med Classific ation: Central Nervous System Agents metformin 500 mg tablet 01-25 00:00: 00 Yes [id number] DIABETES 1 tablet 2 TIMES DAILY 1 tablet 2 TIMES DAILY (route: oral) Med Classific ation: Endocrine Lokelma 10 gram oral powder packet 02-02 00:00: 00 06-09 23:59 :00 No [id number] HYPERKALEMI A 10 gram DAILY 10 gram DAILY (route: oral) Med Classific ation: Electroly te Balance-N utritiona l Products potassium citrate ER 10 mEq (1,080 mg) tablet,exte nded release 02-02 00:00: 00 02-09 23:59 :00 No [id number] SUPPLEMENT 0.5 tablet DAILY 0.5 tablet DAILY (route: oral) Med Classific ation: Genitouri nary Therapy anastrozole 1 mg tablet 2023-05 007 00:00: 00 03-30 23:59 :00 No [id number] HORMONES 1 tablet DAILY 1 tablet DAILY (route: oral) Med Classific ation: Antineopl astics Humalog U-100 Insulin 100 unit/mL subcutaneou s solution 2023-05 0-07 00:00: 00 04-12 23:59 :00 No [id number] DM 10 unit 2 TIMES DAILY 10 unit 2 TIMES DAILY (route: subcutaneo us) Med Classific ation: Endocrine Humulin N NPH U-100 Insulin (isophane susp) 100 unit/mL subcutaneou s 2023-05 00:00: 00 06-09 23:59 :00 No [id number] DM 30 unit DAILY 30 unit DAILY (route: [facility]) Med Classific ation: Endocrine Humulin N NPH U-100 Insulin (isophane susp) 100 unit/mL subcutaneou s 2023-05 00:00: 00 Yes [id number] DM 65 unit BEDTIME 65 unit BEDTIME (route: [facility]) Med Classific ation: Endocrine Novolin N NPH U-100 Insulin isophane 100 unit/mL subcutaneou s susp 2023-05 00:00: 00 Yes [id number] DM 30 unit DAILY 30 unit DAILY (route: [facility]) Med Classific ation: Endocrine Novolin N NPH U-100 Insulin isophane 100 unit/mL subcutaneou s susp 2023-05 00:00: 00 Yes [id number] DM 65 unit BEDTIME 65 unit BEDTIME (route: [facility]) Med Classific ation: Endocrine potassium citrate ER 10 mEq (1,080 mg) tablet,exte nded release 2023-05 00:00: 00 Yes [id number] SUPPLEMENT 1 tablet DAILY 1 tablet DAILY (route: oral) Med Classific ation: Genitouri nary Therapy tadalafil 20 mg tablet 2023-05 00:00: 00 Yes [id number] PULMONARY HYPERTENSIO N 2 tablet BEDTIME 2 tablet BEDTIME (route: oral) Med Classific ation: Drugs to treat Erectile Dysfuncti on Veletri 1.5 mg intravenous solution 2023-05 00:00: 00 Yes [id number] PULMONONARY HYPERTENSIO N 4 vial DAILY 4 vial DAILY (route: intravenou s) Med Classific ation: Cardiovas cular Therapy Agents loperamide 2 mg capsule 9-15 00:00: 00 Yes [id number] LOOSE STOOLS 1 capsule EVERY 3 HOURS 1 capsule EVERY 3 HOURS (route: oral) Med Classific ation: Gastroint estinal Therapy Agents folic acid 1 mg tablet 2023-05 0-16 00:00: 00 Yes [id number] SUPPLEMENT 1 tablet DAILY 1 tablet DAILY (route: oral) Med Classific ation: Electroly te Balance-N utritiona l Products Vitamin B-12 ER 2,000 mcg tablet,exte nded release 2023-05 0-16 00:00: 00 Yes [id number] SUPPLEMENT 1 tablet DAILY 1 tablet DAILY (route: oral) Med Classific ation: Electroly te Balance-N utritiona l Products valacyclovi r 1 gram tablet 2023-05 00:00: 00 03-08 23:59 :00 No [id number] ANTIVIRAL 1 tablet 2 TIMES DAILY 1 tablet 2 TIMES DAILY (route: oral) Med Classific ation: Anti-Infe ctive Agents valacyclovi r 1 gram tablet 2023-05 00:00: 00 Yes [id number] ANTIVIRAL 1 tablet DAILY 1 tablet DAILY (route: oral) Med Classific ation: Anti-Infe ctive Agents cephalexin 500 mg capsule 2023-05 00:00: 00 04-07 23:59 :00 No [id number] TIP OF NOSE CELLULITIS 1 capsule 3 TIMES DAILY 1 capsule 3 TIMES DAILY (route: oral) Med Classific ation: Anti-Infe ctive Agents letrozole 2.5 mg tablet 2023-05 00:00: 00 Yes [id number] HORMONE 1 tablet DAILY 1 tablet DAILY (route: oral) Med Classific ation: Antineopl astics Humalog KwikPen (U-100) Insulin 100 unit/mL subcutaneou s 2023-05 00:00: 00 Yes [id number] DIABETES 15 unit 2 TIMES DAILY 15 unit 2 TIMES DAILY (route: subcutaneo us) Med Classific ation: Endocrine doxycycline hyclate 100 mg tablet 2 00:00: 00 06-14 23:59 :00 No [id number] INFECTION 1 tablet 2 TIMES DAILY 1 tablet 2 TIMES DAILY (route: oral) Med Classific ation: Anti-Infe ctive Agents multivitami n tablet 2- 00:00: 00 Yes [id number] SUPPLEMENT 1 tablet DAILY 1 tablet DAILY (route: oral) Med Classific ation: Electroly te Balance-N utritiona l Products zoledronic acid 4 mg/5 mL intravenous solution 06-14 00:00: 00 Yes [id number] SOB 4 mg DIRECTED 4 mg DIRECTED (route: intravenou s) Med Classific ation: Endocrine doxycycline hyclate 100 mg capsule 06-14 00:00: 00 Yes [id number] LYMPH NODES 1 capsule 2 TIMES DAILY 1 capsule 2 TIMES DAILY (route: oral) Med Classific ation: Anti-Infe ctive Agents Vital Signs Vital Name Observation Time Observation Value Commen ts Temperature 2024-06-15 09:14:00.000 97.2 [degF] Pulse 2024-06-15 09:14:00.000 81 /min O2 Saturation (%) 2024-06-15 09:14:00.000 96 % Respirations 2024-06-15 09:14:00.000 18 /min Weight (lbs) 2024-06-15 09:20:00.000 262 [lb_av] Systolic Blood Pressure 2024-06-15 09:14:00.000 128 mm [Hg] Diastolic Blood Pressure 2024-06-15 09:14:00.000 70 mm [Hg] Plan of Treatment Planned Activity Planned Date Details Comments Future Scheduled Test RN TO OBSE RVE, ASSESS, EVALUATE, AND DEVELOP AN INDIVIDUALIZED PLAN OF CARE. AGENCY MAY ACCEPT ORDERS FROM CONSULTING PHYSICIANS. RN TO OBSERVE AND ASSESS, INSPECTOR AGRICULTURAL COMMODITIES/BRANCH LIBRARY CLERK TO OBSERVE FOR RISK FOR FALLS AND INSTRUCT IN FALL PREVENTION, HOME SAFETY, MEDICATION MANAGEMENT, INFECTION PREVENTION, AND NUTRITION MANAGEMENT. RN/INSPECTOR AGRICULTURAL COMMODITIES/BRANCH LIBRARY CLERK NURSE MAY PERFORM O2 SATURATION LEVEL ON ADMISSION AND PRN FOR RN TO ASSESS/INSPECTOR AGRICULTURAL COMMODITIES TO OBSERVE PATIENT, WITH NOTIFICATION TO THE PHYSICIAN IF SATURATION IS 90% IN THE ABSENCE OF MORE SPECIFIC PARAMETERS FROM THE PHYSICIAN. AGENCY MAY PERFORM A RESUMPTION OF CARE VISIT FOLLOWING ANY HOSPITAL ADMISSION. RN/INSPECTOR AGRICULTURAL COMMODITIES/BRANCH LIBRARY CLERK TO MONITOR CO-MORBID CONDITIONS LISTED ON THE PLAN OF CARE AND ANY NEW CONDITIONS THAT PRESENT THEMSELVES DURING THIS EPISODE TO IDENTIFY CHANGES AND INTERVENE TO MINIMIZE COMPLICATIONS. [code = RN TO OBSERVE, ASSESS, EVALUATE, AND DEVELOP AN INDIVIDUALIZED PLAN OF CARE. AGENCY MAY ACCEPT ORDERS FROM CONSULTING PHYSICIANS. RN TO OBSERVE AND ASSESS, INSPECTOR AGRICULTURAL COMMODITIES/BRANCH LIBRARY CLERK TO OBSERVE FOR RISK FOR FALLS AND INSTRUCT IN FALL PREVENTION, HOME SAFETY, MEDICATION MANAGEMENT, INFECTION PREVENTION, AND NUTRITION MANAGEMENT. RN/INSPECTOR AGRICULTURAL COMMODITIES/BRANCH LIBRARY CLERK NURSE MAY PERFORM O2 SATURATION LEVEL ON ADMISSION AND PRN FOR RN TO ASSESS/INSPECTOR AGRICULTURAL COMMODITIES TO OBSERVE PATIENT, WITH NOTIFICATION TO THE PHYSICIAN IF SATURATION IS 90% IN THE ABSENCE OF MORE SPECIFIC PARAMETERS FROM THE PHYSICIAN. AGENCY MAY PERFORM A RESUMPTION OF CARE VISIT FOLLOWING ANY HOSPITAL ADMISSION. RN/INSPECTOR AGRICULTURAL COMMODITIES/BRANCH LIBRARY CLERK TO MONITOR CO-MORBID CONDITIONS LISTED ON THE PLAN OF CARE AND ANY NEW CONDITIONS THAT PRESENT THEMSELVES DURING THIS EPISODE TO IDENTIFY CHANGES AND INTERVENE TO MINIMIZE COMPLICATIONS.] Future Scheduled Test RISK FOR H OSPITALIZATION; RN TO ASSESS/TEACH, BRANCH LIBRARY CLERK/INSPECTOR AGRICULTURAL COMMODITIES TO OBSERVE/TEACH PATIENT/CAREGIVER ON RISK FOR HOSPITALIZATION/EMERGENCY ROOM VISITS, TEACH SIGNS AND SYMPTOMS THAT PUT PATIENT AT RISK, WHEN TO NOTIFY NURSE/PHYSICIAN OF COMPLICATIONS/DECLINE, AND WHEN TO CALL 911. [code = RISK FOR HOSPITALIZATION; RN TO ASSESS/TEACH, BRANCH LIBRARY CLERK/INSPECTOR AGRICULTURAL COMMODITIES TO OBSERVE/TEACH PATIENT/CAREGIVER ON RISK FOR HOSPITALIZATION/EMERGENCY ROOM VISITS, TEACH SIGNS AND SYMPTOMS THAT PUT PATIENT AT RISK, WHEN TO NOTIFY NURSE/PHYSICIAN OF COMPLICATIONS/DECLINE, AND WHEN TO CALL 911.] Future Scheduled Test MEDICATION MANAGEMENT; RN/INSPECTOR AGRICULTURAL COMMODITIES/BRANCH LIBRARY CLERK TO REVIEW MEDICATIONS FOR INTERACTIONS, EFFECTIVENESS OF DRUG THERAPY, AND SIGNS/SYMPTOMS OF ADVERSE REACTIONS. MAY INSTRUCT AND REINFORCE MEDICATION TEACHING RELATED TO THE USE OF MEDICATIONS, DOSAGE, FREQUENCY, PURPOSE, SIDE EFFECTS, AND TO REPORT COMPLICATIONS. [code = MEDICATION MANAGEMENT; RN/INSPECTOR AGRICULTURAL COMMODITIES/BRANCH LIBRARY CLERK TO REVIEW MEDICATIONS FOR INTERACTIONS, EFFECTIVENESS OF DRUG THERAPY, AND SIGNS/SYMPTOMS OF ADVERSE REACTIONS. MAY INSTRUCT AND REINFORCE MEDICATION TEACHING RELATED TO THE USE OF MEDICATIONS, DOSAGE, FREQUENCY, PURPOSE, SIDE EFFECTS, AND TO REPORT COMPLICATIONS.] Future Scheduled Test CARDIOVASC ULAR SYSTEM; RN TO ASSESS/TEACH, INSPECTOR AGRICULTURAL COMMODITIES/BRANCH LIBRARY CLERK TO OBSERVE/TEACH RELATED TO ALTERED CARDIOVASCULAR STATUS TO MINIMIZE COMPLICATIONS AND REDUCE HOSPITALIZATION. [code = CARDIOVASCULAR SYSTEM; RN TO ASSESS/TEACH, INSPECTOR AGRICULTURAL COMMODITIES/BRANCH LIBRARY CLERK TO OBSERVE/TEACH RELATED TO ALTERED CARDIOVASCULAR STATUS TO MINIMIZE COMPLICATIONS AND REDUCE HOSPITALIZATION.] Future Scheduled Test RESPIRATOR Y SYSTEM MANAGEMENT; RN TO ASSESS AND TEACH, INSPECTOR AGRICULTURAL COMMODITIES/BRANCH LIBRARY CLERK TO OBSERVE AND TEACH RELATED TO ALTERED RESPIRATORY STATUS TO MINIMIZE COMPLICATIONS AND REDUCE HOSPITALIZATION. [code = RESPIRATORY SYSTEM MANAGEMENT; RN TO ASSESS AND TEACH, INSPECTOR AGRICULTURAL COMMODITIES/BRANCH LIBRARY CLERK TO OBSERVE AND TEACH RELATED TO ALTERED RESPIRATORY STATUS TO MINIMIZE COMPLICATIONS AND REDUCE HOSPITALIZATION.] Future Scheduled Test PAIN MANAG EMENT; RN TO ASSESS AND TEACH, BRANCH LIBRARY CLERK/INSPECTOR AGRICULTURAL COMMODITIES TO OBSERVE AND TEACH AND PROVIDE EDUCATION ON PAIN MANAGEMENT TECHNIQUES. [code = PAIN MANAGEMENT; RN TO ASSESS AND TEACH, BRANCH LIBRARY CLERK/INSPECTOR AGRICULTURAL COMMODITIES TO OBSERVE AND TEACH AND PROVIDE EDUCATION ON PAIN MANAGEMENT TECHNIQUES.] Future Scheduled Test DIABETES M ANAGEMENT; RN TO ASSESS AND TEACH, BRANCH LIBRARY CLERK/INSPECTOR AGRICULTURAL COMMODITIES TO OBSERVE AND TEACH INSTRUCTIONS OF DIABETIC CARE TO INCLUDE: DIABETIC DIET, SKIN CARE, SIGNS AND SYMPTOMS OF HYPO/HYPERGLYCEMIA, PROPER ADMINISTRATION OF DIABETIC MEDICATION. RN/BRANCH LIBRARY CLERK/INSPECTOR AGRICULTURAL COMMODITIES TO INSTRUCT ON DIABETIC FOOT CARE AND MONITOR FOR SKIN LESIONS ON LOWER EXTREMITIES. BLOOD GLUCOSE TESTING FREQ BID. RN TO ASSESS AND TEACH, BRANCH LIBRARY CLERK/INSPECTOR AGRICULTURAL COMMODITIES TO OBSERVE AND TEACH PATIENT/CAREGIVER ABILITY TO PERFORM AND RECORD BLOOD GLUCOSE TESTING ORDERED AND TO REPORT ABNORMAL FINDINGS TO PHYSICIAN. RN/BRANCH LIBRARY CLERK/INSPECTOR AGRICULTURAL COMMODITIES MAY PERFORM BLOOD GLUCOSE TEST NEEDED. RN/BRANCH LIBRARY CLERK/INSPECTOR AGRICULTURAL COMMODITIES TO REPORT TO PHYSICIAN BLOOD GLUCOSE READINGS GREATER THAN 300 OR LESS THAN 70. RN/BRANCH LIBRARY CLERK/INSPECTOR AGRICULTURAL COMMODITIES TO INSTRUCT PATIENT ON IMPORTANCE OF HGBA1C MONITORING, KIDNEY FUNCTION TEST, EYE AND FOOT EXAMS. [code = DIABETES MANAGEMENT; RN TO ASSESS AND TEACH, BRANCH LIBRARY CLERK/INSPECTOR AGRICULTURAL COMMODITIES TO OBSERVE AND TEACH INSTRUCTIONS OF DIABETIC CARE TO INCLUDE: DIABETIC DIET, SKIN CARE, SIGNS AND SYMPTOMS OF HYPO/HYPERGLYCEMIA, PROPER ADMINISTRATION OF DIABETIC MEDICATION. RN/BRANCH LIBRARY CLERK/INSPECTOR AGRICULTURAL COMMODITIES TO INSTRUCT ON DIABETIC FOOT CARE AND MONITOR FOR SKIN LESIONS ON LOWER EXTREMITIES. BLOOD GLUCOSE TESTING FREQ BID. RN TO ASSESS AND TEACH, BRANCH LIBRARY CLERK/INSPECTOR AGRICULTURAL COMMODITIES TO OBSERVE AND TEACH PATIENT/CAREGIVER ABILITY TO PERFORM AND RECORD BLOOD GLUCOSE TESTING ORDERED AND TO REPORT ABNORMAL FINDINGS TO PHYSICIAN. RN/BRANCH LIBRARY CLERK/INSPECTOR AGRICULTURAL COMMODITIES MAY PERFORM BLOOD GLUCOSE TEST NEEDED. RN/BRANCH LIBRARY CLERK/INSPECTOR AGRICULTURAL COMMODITIES TO REPORT TO PHYSICIAN BLOOD GLUCOSE READINGS GREATER THAN 300 OR LESS THAN 70. RN/BRANCH LIBRARY CLERK/INSPECTOR AGRICULTURAL COMMODITIES TO INSTRUCT PATIENT ON IMPORTANCE OF HGBA1C MONITORING, KIDNEY FUNCTION TEST, EYE AND FOOT EXAMS.] Future Scheduled Test CANCER MAN AGEMENT; RN TO ASSESS AND TEACH, BRANCH LIBRARY CLERK/INSPECTOR AGRICULTURAL COMMODITIES TO OBSERVE AND TEACH AND PROVIDE EDUCATION ON CANCER. [code = CANCER MANAGEMENT; RN TO ASSESS AND TEACH, BRANCH LIBRARY CLERK/INSPECTOR AGRICULTURAL COMMODITIES TO OBSERVE AND TEACH AND PROVIDE EDUCATION ON CANCER.] Future Scheduled Test FALL REDUC TION MANAGEMENT; RN TO ASSESS AND OBSERVE, INSPECTOR AGRICULTURAL COMMODITIES/BRANCH LIBRARY CLERK TO OBSERVE FALL RISK FACTORS AND EDUCATE PATIENT/CAREGIVER ON STRATEGIES TO MINIMIZE THE RISK OF FALLING. [code = FALL REDUCTION MANAGEMENT; RN TO ASSESS AND OBSERVE, INSPECTOR AGRICULTURAL COMMODITIES/BRANCH LIBRARY CLERK TO OBSERVE FALL RISK FACTORS AND EDUCATE PATIENT/CAREGIVER ON STRATEGIES TO MINIMIZE THE RISK OF FALLING.] Future Scheduled Test IV THERAPY MANAGEMENT; RN TO ASSESS AND TEACH, BRANCH LIBRARY CLERK/INSPECTOR AGRICULTURAL COMMODITIES TO OBSERVE AND TEACH ON IV ACCESS SITE HERNANDEZ, RESPONSE TO MEDICATION. RN/BRANCH LIBRARY CLERK/INSPECTOR AGRICULTURAL COMMODITIES FOR SKILLED TEACHING REGARDING INFUSION PROCEDURE, CARE OF ACCESS DEVICE, SIGNS AND SYMPTOMS OF ACCESS DEVICE COMPLICATIONS AND, CARE AND USE OF INFUSION EQUIPMENT. [code = IV THERAPY MANAGEMENT; RN TO ASSESS AND TEACH, BRANCH LIBRARY CLERK/INSPECTOR AGRICULTURAL COMMODITIES TO OBSERVE AND TEACH ON IV ACCESS SITE HERNANDEZ, RESPONSE TO MEDICATION. RN/BRANCH LIBRARY CLERK/INSPECTOR AGRICULTURAL COMMODITIES FOR SKILLED TEACHING REGARDING INFUSION PROCEDURE, CARE OF ACCESS DEVICE, SIGNS AND SYMPTOMS OF ACCESS DEVICE COMPLICATIONS AND, CARE AND USE OF INFUSION EQUIPMENT.] Future Scheduled Test HERNANDEZ MA NAGBABITA PERFORM SITE CARE FOLLOWS: DRESSING CHANGES ONCE A WEEK AND PRN FOR LOOSE OR SOILED DRESSING. SKIN PREP PRN. SECUREMENT DEVICE PRN. BIOPATCH PRN FOR REDNESS OR NEUTROPENIA. [code = HERNANDEZ MANAGEMENT PERFORM SITE CARE FOLLOWS: DRESSING CHANGES ONCE A WEEK AND PRN FOR LOOSE OR SOILED DRESSING. SKIN PREP PRN. SECUREMENT DEVICE PRN. BIOPATCH PRN FOR REDNESS OR NEUTROPENIA. ] Goal 2023-09-25 Patient Goal - F EEL BETTER AND GET GOING WITH BREAST CANCER TREATMENT Goal 2023-12-14 Patient Goal - F EEL BETTER AND GET GOING WITH BREAST CANCER TREATMENT Goal 2023-10-13 Patient Goal - F EEL BETTER AND GET GOING WITH BREAST CANCER TREATMENT Goal 2024-01-26 Patient Goal - F EEL BETTER AND GET GOING WITH BREAST CANCER TREATMENT Goal 2024-04-12 Patient Goal - F EEL BETTER AND GET GOING WITH BREAST CANCER TREATMENT Goal 2024-02-10 Patient Goal - F EEL BETTER AND GET GOING WITH BREAST CANCER TREATMENT Goal 2024-06-09 Patient Goal - F EEL BETTER AND GET GOING WITH BREAST CANCER TREATMENT Goal Patient Goal - F EEL BETTER AND GET GOING WITH BREAST CANCER TREATMENT Goal Provider Goal - A PLAN OF CARE WILL BE ESTABLISHED THAT MEETS THE PATIENTS NEEDS. PATIENT WILL DEMONSTRATE OXYGEN SATURATION WITHIN NORMAL LIMITS OR PATIENTS OPTIMAL LEVEL ESTABLISHED BY THE PHYSICIAN THROUGHOUT CARE. CHANGES TO CO-MORBID CONDITIONS AND ANY NEW CONDITIONS WILL BE IDENTIFIED AND REPORTED TO THE PHYSICIAN. Goal Provider Goal - PATIENT/CAREGIVER WILL VERBALIZE UNDERSTANDING OF SIGNS AND SYMPTOMS THAT PUT THE PATIENT AT RISK FOR HOSPITALIZATION /EMERGENCY ROOM VISITS, WHEN TO NOTIFY NURSE/PHYSICIAN OF COMPLICATIONS/DECLINE AND WHEN TO CALL 911. Goal Provider Goal - PATIENT/CAREGIVER TO VERBALIZE, AND CONSISTENTLY DEMONSTRATE EFFECTIVE, SAFE MANAGEMENT OF MEDICATION INCLUDING KNOWLEDGE OF EFFECTIVENESS, POTENTIAL SIDE EFFECTS AND DRUG REACTIONS AND WHEN TO CONTACT THE APPROPRIATE CARE PROVIDER. PATIENT/CAREGIVER WILL BE ABLE TO VERBALIZE UNDERSTANDING OF MEDICATION REGIMEN AND ACCURATELY TAKE MEDICATIONS PRESCRIBED WITHOUT ADVERSE EFFECTS BY EOE. Goal Provider Goal - PATIENT / CAREGIVER WILL VERBALIZE/DEMONSTRATE UNDERSTANDING OF MEASURES TO MANAGE ALTERED CARDIOVASCULAR STATUS BY EOE. Goal Provider Goal - PATIENT / CAREGIVER WILL VERBALIZE/DEMONSTRATE UNDERSTANDING OF MEASURES TO MANAGE ALTERED RESPIRATORY STATUS BY END OF EPISODE. Goal Provider Goal - PATIENT / CAREGIVER WILL VERBALIZE / DEMONSTRATE UNDERSTANDING OF PAIN CONTROL MEASURES BY EOE. Goal Provider Goal - PATIENT / CAREGIVER WILL VERBALIZE / DEMONSTRATE AN ABILITY TO ADHERE TO SELF-MANAGEMENT OF DIABETES MANAGEMENT BY EOE. Goal Provider Goal - PATIENT / CAREGIVER WILL VERBALIZE/DEMONSTRATE UNDERSTANDING OF MEASURES TO MINIMIZE COMPLICATIONS AND REDUCE HOSPITALIZATION RELATED TO CANCER BY END OF EPISODE. Goal Provider Goal - PATIENT/CAREGIVER WILL VERBALIZE/DEMONSTRATE UNDERSTANDING OF FALL RISK FACTORS AND IMPLEMENT STRATEGIES TO MINIMIZE FALL RISK. PATIENT/CAREGIVER WILL VERBALIZE/DEMONSTRATE AN ABILITY TO ADHERE TO FALL REDUCTION SELF-MANAGEMENT AND LIFE-STYLE CHANGES BY EOE. Goal Provider Goal - PATIENT / CAREGIVER WILL VERBALIZE/DEMONSTRATE ABILITY TO CARE FOR ADMINISTER IV ADEQUATELY BY EOE. Goal Provider Goal - PATIENT WILL RECEIVE ADMINISTRATION OF ORDERED INFUSION WITHOUT COMPLICATIONS OR INFECTION RELATED TO VASCULAR ACCESS. Encounters Start Date/Time End Date/Time Encounter Type Admission Type Attending [facility] Care Facility Care Department Encounter ID Discharge Date Discharge Status Discharge Condition Discharge Reason Percent Goals Met 2023-08-19 00:00:00 2024-08-12 00:00:00 Outpatient YULIANARTJARAD EDWARDS [facility] [id number]
--- OUTSIDE RECORDS SUMMARY | 2024-06-21 14:18 | XMS_ITS | Clinical Summary ---
Author Organization [facility] Address [address] [place] [address] Care Team Providers Care Food Assembler Commissary Kitchen Name Role Phone Nimo Dimas MD Primary Care Provid er Surgical History Surgery Date Site/Laterality Comments SECTION PROCEDURE: SECTION Medical History Medical History Date Comments Asthma DX:Asthma Diabetes mellitus (CMS/HCC) DX:D iabetes mellitus (HCC) High blood pressure DX:High bloo d pressure Hypothyroidism DX:Hypothyroidis m Kidney damage DX:Kidney damage Family History Medical History Relation Name Comments Diabetes Brother Hypertension Brother Diabetes Mother Hypertension Mother Relation Name Status Comments Brother Mother Social History Tobacco Use Types Packs/Day Years Used Date Smoking Tobacco: Never Assessed Comments Unknown Sex and Gender Information Value Date Recorded Sex Assigned at Not on file Legal Sex Female 4:46 PM EST Gender Identity Not on file Sexual Orientation Not on file Obstetrics History Last Filed Vital Signs Vital Sign Reading Time Taken Comments Blood Pressure - - Pulse - - Temperature - - Respiratory Rate - - Oxygen Saturation - - Inhaled Oxygen Concentration - - Weight 117 kg (257 lb) 05/28/2022 11:04 AM EST Height 160 cm (5' 3 ) 05/28/2022 11:04 AM EST Body Mass Index 45.53 05/28/2022 11:04 AM EST Plan of Treatment Health Maintenance Due Date Last Done Comments Breast Cancer Screening 1955 DTaP,Tdap,and Td Vaccines (1 - Tdap) 1963 Pneumococcal Vaccine: 50+ Ye ars (1 of 1 - PCV) 2006 Zoster Vaccines (1 of 2) 2006 RSV Immunization Patients 60 + Years Old (1 - Risk 60-74 years 1-dose series) 2016 Colorectal Cancer Screening: Colonoscopy 04/09/2022 Depression Screening 04/09/2022 Falls Risk Assessment 04/09/2022 Hepatitis C Screening 04/09/2022 Osteoporosis Screening (Bone Density Screening) 04/09/2022 Social Influencers of Health Screening 04/09/2022 COVID-19 Vaccine (1 - 2023-2 5 season) 2024 Influenza Vaccine (#1) 2024 HIB Vaccines Aged Out No longer eligi ble based on patient's age to complete this topic HPV Vaccines Aged Out No longer eligi ble based on patient's age to complete this topic Hepatitis A Vaccines Aged Out No long er eligible based on patient's age to complete this topic Hepatitis B Vaccines Aged Out No long er eligible based on patient's age to complete this topic IPV Vaccines Aged Out No longer eligi ble based on patient's age to complete this topic MMR Vaccines Aged Out No longer eligi ble based on patient's age to complete this topic Meningococcal ACWY Vaccine Aged Out N o longer eligible based on patient's age to complete this topic Meningococcal B Vacine Aged Out No lo nger eligible based on patient's age to complete this topic RSV Immunization Patients Un nilesh 20 months Aged Out No longer eligible b ased on patient's age to complete this topic Varicella Vaccines Aged Out No longer eligible based on patient's age to complete this topic Care Teams Food Assembler Commissary Kitchen Relationship Specialty Start Date End Date Nimo Dimas MD [address] [place] [address] [address] [place] [address] PCP - General 05/01/22
--- OUTSIDE RECORDS SUMMARY | 2024-06-21 14:18 | XMS_ITS | Clinical Summary ---
Author Organization [facility] Address [address] [phone] Phone Care Team Providers Care Right Of Way Man Name Role Phone Nimo Dimas MD Primary Care Provider Allergies Active Allergy Reactions Criticality Noted Date Comments Fenofibrate 12/18/2021 Nitrofurantoin 12/18/2021 Nystatin 12/18/2021 Medications albuterol HFA (PROVENTIL HFA;VENTOLIN HFA) 108 (90 Base) MCG/ACT inhaler Inhale 07/12/2018 Active atorvastatin (LIPITOR) 20 MG tablet Take 20 mg by mouth 1 (one) time each day 10/07/2021 Active Advair HFA 115-21 MCG/ACT inhaler Inhale 2 puffs in the morning and 2 puffs in the evening. 11/27/2021 Active levothyroxine (SYNTHROID, LEVOTHROID) 150 MCG tablet Take 75 mcg by mouth 1 (one) time each day 11/22/2021 Active LORazepam (ATIVAN) 0.5 MG tablet Take 0.5 mg by mouth 1 (one) time each day if needed 10/16/2021 Active metFORMIN XR (GLUCOPHAGE-XR) 500 MG 24 hr tablet Take 250 mg by mouth in the morning and 250 mg in the evening. 10/07/2021 Active Montelukast Sodium (SINGULAIR PO) Take 10 mg by mouth 06/04/2017 Active traMADol (ULTRAM) 50 MG tablet Take 50 mg by mouth every 8 (eight) hours if needed 12/02/2021 Active insulin NPH, Isophane, (NovoLIN N) 100 UNIT/ML injection Inject under the skin 10/17/2021 Active irbesartan (AVAPRO) 300 MG tablet Take 1 tablet by mouth 1 (one) time each day 01/20/2022 Active FLUoxetine (PROzac) 10 MG capsule Take 10 mg by mouth 1 (one) time each day Active potassium citrate 10 MEQ (1080 MG) CR tabletIndicatio ns:Renal stone Take 1 tablet (10 mEq total) by mouth 1 (one) time each day Do not crush, chew, or split. 30 tablet 2 02/03/2024 Active folic acid (FOLVITE) 1 MG tablet Take 1 mg by mouth 1 (one) time each day Active cyanocobalamin 2000 MCG tablet Take 2,000 mcg by mouth 1 (one) time each day Active Active Problems Problem Noted Date Diagnosed Date Chronic kidney disease, stage 2 (mild) Cellulitis of nasal mucous membrane 03/29/2024 Metabolic acidosis, NAG, acidifying salts 2023 Swelling of upper arm <Right side> 02/03/2024 Anemia, not otherwise specified 02/03/2024 Hyperkalemia 02/03/2024 Acute nontraumatic kidney injury, not otherwise specified 02/03/2024 Diabetes mellitus 12/18/2021 Emphysematous bronchitis 12/18/2021 Hyperlipidemia 12/18/2021 Hypertensive disorder 12/18/2021 Hypothyroidism 12/18/2021 Renal stone 12/18/2021 Pure hypercholesterolemia 11/20/20212022 Obstructive sleep apnea syndrome 11/20/2021 02/04/2023 Nonalcoholic steatohepatitis (JC) 11/20/2021 02/04/2023 Gastroesophageal reflux disease 11/20/2021 02/04/2023 Asthma without status asthmaticus 11/20/2021 02/04/2023 Anxiety state 11/20/2021 02/04/2023 Encounters Date Type Department Care Team Description 03/29/2024 3:15 PM EST Office Visit [facility] [address] [address] Selene Lockwood ARNP Chronic kidney disease, stage 2 (mild) (Primary Dx); Cellulitis of nasal mucous membrane; Hyperkalemia; Anemia, not otherwise specified; Hypertensive disorder 03/28/2024 Documentation Only [facility] [address] [phone] Marielos Connelly from Last 3 Months Immunizations Name Administration Dates Next Due Pneumococcal Conjugate 13-Valent 07/20/2019 Tdap 05/10/2016 Family History Medical History Relation Comments Cancer Father Stroke Father Stroke Mother Relation Status Comments Father Mother Social History Tobacco Use Types Packs/Day Years Used Date Smoking Tobacco: Never Smokeless Tobacco: Never Tobacco Cessation:Counseling Given: Not Answered Alcohol Use Standard Drinks/Week Comments Never 0 (1 standard drink = 0.6 oz pur e alcohol) Comments Unknown Sex and Gender Information Value Date Recorded Sex Assigned at Not on file Legal Sex Female 10:37 AM EDT Gender Identity Not on file Sexual Orientation Not on file Last Filed Vital Signs Vital Sign Reading Time Taken Comments Blood Pressure 126/60 03/29/2024 3:45 PM EST Pulse 91 03/29/2024 3:10 PM EST Temperature - - Respiratory Rate - - Oxygen Saturation 93% 03/29/2024 3:10 PM EST Inhaled Oxygen Concentration - - Weight 118 kg (260 lb) 03/29/2024 3:10 PM EST Height 157.5 cm (5' 2 ) 02/04/2023 4:21 PM EDT Body Mass Index 47.55 02/04/2023 4:21 PM EDT Plan of Treatment Upcoming Encounters Date Type Department Care Team (Late st Contact Info) Description 09/26/2024 1:45 PM EDT Office Visit [facility] [address] [phone] Selene Lockwood ARNP [address] [phone] Health Maintenance Due Date Last Done Comments Breast Cancer Screening 1955 Colorectal Cancer Screening: Annual FOBT 2005 Colorectal Cancer Screening: Colonoscopy 2005 Colorectal Cancer Screening: Sigmoidoscopy 2005 Pneumococcal Vaccine: 65+ Ye ars (2 of 2 - PPSV23 or PCV20) 09/14/2019 07/20/2019 Diabetes: Hemoglobin A1C 11/19/2021 Diabetes: Ophthalmology Exam 11/19/2021 Diabetes: Pedal Pulse Checked 11/19/2021 Diabetes: Sensory Foot Exam 11/19/2021 Diabetes: Visual Foot Exam 11/19/2021 Influenza Vaccine (#1) 2024 Hepatitis B Vaccine Aged Out No longe r eligible based on patient's age to complete this topic Insurance MEDICARE [facility] MEDICARE [facility] Care Teams Right Of Way Man Relationship Specialty Start Date End Date Nimo Dimas MD [address] [place] [address] [address] [place] [address] PCP - General Endocrinology 12/18/21
--- OUTSIDE RECORDS SUMMARY | 2024-06-21 14:18 | XMS_ITS ---
Author Name [facility] Organization Unknown History of Medication Use Medication Directions Dispensed Refills Start Date End Date Status methylprednisolone 4 mg tablets in a dose pack TAKE 6 TABLETS ON DAY 1 DIRECTED ON PACKAGE AND DECREASE BY 1 TAB EACH DAY FOR A TOTAL OF 6 DAYS 03/18/20 23 completed hydroxyzine HCl 25 mg tablet TAKE 1 TABLET BY MOUTH 3-4 TIMES PER DAY NEEDED FOR ITCHING FOR 5 DAYS 03/18/20 23 active Trulicity 3 mg/0.5 mL subcutaneous pen injector INJECT 1 PEN SUBCUTANEOUSLY EVERY WEEK 03/18/20 23 active Wixela Inhub 250 mcg-50 mcg/dose powder for inhalation INHALE 1 PUFF TWICE A DAY *RINSE MOUTH AND THROAT AFTER* active fluticasone propionate 50 mcg/actuation nasal spray,suspension USE 1 SPRAY IN EACH NOSTRIL TWICE A DAY active fluoxetine 10 mg capsule TAKE 3 CAPSULES BY MOUTH EVERY DAY DIRECTED active azithromycin 250 mg tablet TAKE 2 TABLETS BY MOUTH TODAY, THEN TAKE 1 TABLET DAILY FOR 4 DAYS DIRECTED active metformin ER 500 mg tablet,extended release 24 hr TAKE 2 TABLETS BY MOUTH TWICE A DAY DIRECTED active Jardiance 10 mg tablet TAKE 1 TABLET BY MOUTH EVERY DAY 03/18/20 23 active glipizide 5 mg tablet TAKE 2 TABLETS BY MOUTH TWICE A DAY 10/29/19 24 active hydrocortisone 1 % topical cream active benzonatate 100 mg capsule TAKE 1 CAPSULE BY MOUTH THREE TIMES A DAY NEEDED FOR COUGH FOR 5 DAYS 10/29/19 24 completed lorazepam 0.5 mg tablet TAKE 1 TABLET BY MOUTH TWICE A DAY NEEDED FOR MAJOR DEPRESSIVE DISORDER active diltiazem CD 240 mg capsule,extended release 24 hr TAKE 1 CAPSULE BY MOUTH EVERY DAY 03/18/20 23 active Trulicity 4.5 mg/0.5 mL subcutaneous pen injector INJECT 1 PEN SUBCUTANEOUSLY ONCE WEEKLY. active irbesartan 300 mg tablet TAKE 1 TABLET BY MOUTH ONCE DAILY DIRECTED FOR 90 DAYS active hydrocortisone 2.5 % topical cream TAKE 1 APPLICATION (TOPICAL) 3 TIMES PER DAY ( NEEDED - SKIN IRRITATION) FOR 14 DAYS 03/18/20 23 completed prednisone 20 mg tablet TAKE 1 TABLET BY MOUTH EVERY DAY FOR 5 DAYS 10/29/19 24 completed lidocaine (PF) 10 mg/mL (1 %) injection solution Take 2 mL by injection route. 3 03/18/20 23 active Allergies Allergen Reaction Severity Comment Documented Date Source Statu s SUDAFED ENS_AONECT Problems Problem Status Onset Date Problem Type Date of Resoluti on Source Derangement of medial meniscus active 2023-03-18 ProblemAct E[facility] Chronic instability of right knee joint active 2023-02-25 ProblemAct [facility] Contusion of right knee active 2023-10-29 ProblemAct [facility]
== END 2024-06-21 13:57 | disposition home or self-care (01) ==
PROVIDERS: PCP Internal Medicine Endocrinology, Diabetes & Metabolism; Visit Provider Orthopaedic Surgery
DX: M17.11 Unilateral primary osteoarthritis, right knee (principal)
CPT/HCPCS: 20610; 99213

== ENCOUNTER → 2024-06-21 13:13 | Outpatient (BNVA) | payer MEDICARE, BC, SELFPAY | PROVIDERS: PCP Internal Medicine Endocrinology, Diabetes & Metabolism; Visit Provider Orthopaedic Surgery | DX: M17.11 Unilateral primary osteoarthritis, right knee (principal) | CPT/HCPCS: 20610; 99212; J1010; J2003 ==

== ENCOUNTER 2025-04-04 11:11 | Outpatient (AMB) | payer MEDICARE, BC, SELFPAY ==
[2025-04-04 11:15] VITALS: BMI 45.3
--- NOTE | 2025-04-04 11:15 | MHC.OFFVIS ---
Vital Signs 04/04/25 11:15 Height 5 ft 3 in Weight 256 lb BMI 45.3 Intake Visit Reasons: Inj- Bilateral knee cortisone inj Intake Note: Elda is a 69 year old female who presents with complaints of bilateral knee pains. She describes her pains as sharp in nature. She has had cortisone injections in the past which gave her fairly good relief. She wishes to hold off on surgery if at all possible. She has tried Tylenol and anti-inflammatory medicines which gave her minimal relief. Allergies pseudoephedrine (From Sudafed) Allergy (Verified 04/04/25 11:15) SOB Medication List - Last Reconciled 04/04/25 by Fernando Crandall MD albuterol sulfate 90 mcg/actuation inhalation atorvastatin 20 mg PO DAILY epoprostenol (Veletri) mg continuous IV infusion fluoxetine mg PO fluticasone propion-salmeterol 250-50 mcg/dose (Wixela Inhub) 1 ea inhalation BID fluticasone propionate 50 mcg/actuation sprays intranasal folic acid 1 mg PO DAILY insulin aspart U-100 (Novolog U-100 Insulin aspart) subcut insulin NPH isoph U-100 human (Novolin N NPH U-100 Insulin isophane) units subcut ipratropium-albuterol 0.5 mg-3 mg(2.5 mg base)/3 mL mL inhalation QID irbesartan 300 mg PO DAILY levothyroxine 75 mcg PO DAILY loperamide mg PO lorazepam mg PO metformin ER 1,000 mg PO BID montelukast 10 mg PO DAILY ondansetron HCl 4 - 8 mg PO Q8H PRN potassium citrate ER 10 mEq PO DAILY prochlorperazine maleate 5 - 10 mg PO Q6H PRN tadalafil (pulm. hypertension) 20 mg PO Q OTHER DAY valacyclovir 1,000 mg PO DAILY PFS Surgical History History of partial mastectomy of right breast Social History Patient Tobacco Use Status: Never used Tobacco Current occupational status: retired Physical Exam Vital Signs: BMI result Body Mass Index 45.3 Extrem Other: Bilateral knee examination shows minimal effusions, palpable crepitus with range of motion, pain with range of motion, no instability Office Procedures AMB Joint Injection/Aspiration Joint Injection/Aspiration Primary Site: Right Knee Prep: site was prepped using aseptic technique Injected: 40 mg of, DepoMedrol, with 3 mL of and 1% plain Lidocaine Procedure: The patient tolerated the procedure well Coding - Large joint Procedure code (CPT) selection complete AMB Joint Injection/Aspiration Joint Injection/Aspiration Primary Site: Left Knee Prep: site was prepped using aseptic technique Injected: 40 mg of, DepoMedrol, with 3 mL of and 1% plain Lidocaine Procedure: The patient tolerated the procedure well Coding - Large joint Procedure code (CPT) selection complete Assessment & Plan Assessment & Plan (1) Arthritis of left knee: Code(s): M17.12 - Unilateral primary osteoarthritis, left knee Category: Medical (2) Arthritis of right knee: Code(s): M17.11 - Unilateral primary osteoarthritis, right knee Category: Medical Plan Ms. Reaves presents with bilateral knee pains due to degenerative joint disease. The risks and benefits of bilateral knee cortisone injections were discussed at length with the patient. The patient wished to proceed. She tolerated the injections well. She will continue with her home exercise program. She will contact me prior to her follow-up appointment in 3 months should any questions or concerns arise. Feel free to call me at any time should questions regarding her orthopedic management arise. I spent 22 minutes in reviewing the patient's records and imaging studies, seeing the patient and documenting in the medical record. Orders: Orders AMB Joint Injection/Aspiration Today M17.12 - Unilateral primary osteoarthritis, left knee AMB Joint Injection/Aspiration Today M17.11 - Unilateral primary osteoarthritis, right knee Coding Level of Care Code Est Pt Level 3 (59444) Complex visit Add On G2211 Diagnoses Arthritis of left knee M17.12 Arthritis of right knee M17.11 CPT Codes Coding - 94409 Large joint: 03487 - Large joint ([id number]) Coding - 51882 Large joint: 31806 - Large joint ([id number])
--- OUTSIDE RECORDS SUMMARY | 2025-04-04 14:47 | XMS_ITS | Clinical Summary ---
Author Organization [facility] Address [address] [place] [address] Care Team Providers Care It Business Systems Analyst Name Role Phone Nimo Dimas MD Primary [...] or PCV20) 2021 07/20/2019 Influenza Vaccine (#1) 2025 RSV Adult > 60+ Yrs or Pregn ant (1 - 1-dose 75+ series) 2031 Hepatitis B Vaccines Aged Out No long er eligible based on patient's age to complete this topic RSV Ped < 20 months Aged Out No longe r eligible based on patient's age to complete this topic Care Teams It Business Systems Analyst Relationship Specialty Start Date End Date Nimo Dimas MD [address] [place] [address] Drive [address] [place] [address] PCP - General Gastroenterology 05/01/22
--- OUTSIDE RECORDS SUMMARY | 2025-04-04 14:47 | XMS_ITS | Continuity of Care Document ---
Author Organization [facility] [address] [place] [address] Phone [phone] Care Team Providers Care Transporter Driver Name Role Phone Nimo Dimas M.D. Care Team Informati on Turkish Line Attendant [phone] Fernando Crandall MD Care Team Information Receive r [phone] Problems Active Problems Provider Date Type 2 diabetes mellitus Nimo Bond M.D. Onset: 11/20/2021 Essential hypertension Nimo ballesteros M.D. Onset: 11/20/2021 Kidney stone Nimo diallo M.D. Onset: 11/20/2021 Hypothyroidism Nimo diallo M.D. Onset: 11/20/2021 Pure hypercholesterolemia Nimo Velazquez M.D. Onset: 11/20/2021 Asthma without status asthmaticus Maricarmen Dimas M.D. Onset: 11/20/2021 Anxiety state Nimo diallo M.D. Onset: 11/20/2021 Obstructive sleep apnea syndrome Tiara Dimas M.D. Onset: 11/20/2021 Gastroesophageal reflux disease Nimo Dimas M.D. Onset: 11/20/2021 Nonalcoholic steatohepatitis Nimo Dang M.D. Onset: 11/20/2021 Microalbuminuria Nimo diallo M.D. Onset: 03/02/2022 Idiopathic pulmonary arteria l hypertension Nimo Dimas M.D. Onset: 01/06/2025 Uncontrolled type 2 diabetes mellitus Ki armani Dimas M.D. 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 02/06/2025 BD Ins Syrn Uf1ml Use Syringes To Inject Insulin Five Times Daily DX: E11.65 500units E11.65 Nimo Dimas M.D. 10/07/2024 Novolin N Nenxbti518Qhil/ML Supn Inject 30 units in the morning and 65 units in the evening 90ml E11Kika Dimas M.D. 08/23/2024 BD Pen Needle/Short/Ultra-F ine/31G X 8mm31G X 8 mm Misc Use as directed twice daily with insulin pen 200units E11.21 Nimo Dimas M.D. 08/23/2024 E11.65 Fluoxetine MAS04oq Capsules Take 3 Caps By Mouth Every Day as Directed 270caps Nimo Dimas M.D. 07/11/2024 Amoxicillin/Clavulan ate Whchiepdc191-554ch Tablets take 1 tablet by mouth twice a day for 7 days 14tabs Nimo Dimas M.D. 04/11/2024 KP Folic Rwsu0fs Tablets 1 qd 90taradha Dimas M.D. 02/16/2024 BD Insulin Syringe Ultra Fine/1ML/30G X 1/2 30G X 1/2 1 ML Misc Use Syringes To Inject Insulin Four Times Daily DX: E11.9 400units E11.9 Nimo Davila-Dante, M.D. 07/15/2023 Kxpbfml137Flns/ML Solution Use 30 u bid Premeal 40units E11.9 Nimo Dimas M.D. 11/12/2022 Vlxqibcfxe381uh Tablets Take 1 Tablet By Mouth Once Daily as Directed 90tabs Nimo Dimas M.D. 07/16/2022 Albuterol Sulfate OLK895(90Base) mcg/Act Aerosol Inhale 2 Puffs Every 6 Hours as Needed 20.1gm Nimo Dimas M.D. 07/16/2022 Metformin HCL OT038wc Tablets ER 24HR Take 2 Tablets By Mouth Twice A Day as Directed 360taradha Dimas M.D. 11/20/2021 Levothyroxine Dbbvas31rkx Tablets Take 1 Tablet By Mouth Every Day 90taradha Dimas M.D. 11/20/2021 Atorvastatin Wvquptw34dy Tablets Take 1 Tablet By Mouth Every Day 90taradha Dimas M.D. 11/20/2021 Montelukast Qdrngs40wr Tablets Take 1 Tablet By Mouth Every Day as Directed 90taradha Dimas M.D. 10/17/2021 Onetouch Ultra TestStrips Use To Test Blood Sugar Twice A Day as Directed 200units E11Kajal Dimas M.D. 10/17/2021 Nvnkqi74ef Capsules Take 3 caps by mouth every day as directed 180caps Nimo Dimas M.D. 10/17/2021 Lorazepam0.5mg Tablets Take 1 Tablet By Mouth Twice A Day as Needed 60tabs Nimo Dimas M.D. 10/17/2021 Potassium Citrate IC80Jtq (1080 mg) Tablets ER 1 qd Unknown Veletri0.5mg Solution Rec Unknown Uuiatjsqn45ux Tablets 2 tablets qd Unknown Colestipol HCL1gm Tablets take 2 tablet by mouth once daily Unknown Apgtebmiaoo5wq Tablets Dispers take 1 tablet every 8 hours as needed for nausea Unknown Ipratropium [place]/Albuterol Sulfate0.5-2.5(3)mg/ 3ML Solution use 3 milliliters via nebulizer four times daily as needed for shortness of breath/wheezing Unknown Ayr0.65% Solution Unknown Loperamide HCL2mg Capsules take 1 capsule by mouth once a day as needed for loose stools. max 8 caps/day Unknown Hydrocortisone1% Cream apply topically each day as needed for irritation Unknown Wixela Rkyzy683-14ihf/Act Aerosol inhale 1 puff by mouth twice daily Unknown Vitamin B12 OZ1147kja Tablets ER 1 by mouth every day Nimo Dimas M.D. Valacyclovir HCL1gm Tablets 1 by mouth every day Unknown Letrozole2.5mg Tablets 1 by mouth every day Unknown Tramadol CHY44vy Tablets prn Unknown Vital Signs Date Vital Result Comment 01/06/2025 3:45pm BP Systolic 126 mmHg BP Diastolic 58 mmHg Heart Rate 99 /min Height 63 inches 5'3 Weight 266.38 lb BMI (Body Mass Index) 47.2 kg/m2 Results Test Acquired Date Facility Test Result H/L Range Note TSH Rfx on Abnormal to Free T4 02/13/2025 [facility] TSH Rfx on Abnormal to Free T4 1.460 uIU/mL 0.450-4 .500 Hepatic Function Panel (7) 02/13/2025 [facility] Protein, Total 7.4 g/dL 6.0-8.5 Albumin 4.5 g/dL 3.9-4.9 Bilirubin, Total 0.3 mg/dL 0.0-1 .2 Alkaline Phosphatase 55 IU/L 49-135 Ast (Sgot) 17 IU/L 0-40 Alt (SGPT) 17 IU/L 0-32 Bilirubin, Direct 0.11 mg/dL 0.00-0. 40 Hemoglobin A1c 01/06/2025 Inhouse Hemoglobin A1c 8.4% Glucose Fingerstick 01/06/2025 Inhouse Glucose Fingerstick 113 TSH RFX On Abnormal To Free T4 01/06/2025 [facility] TSH RFX On Abnormal To Free T4 <pending> Glucose Fingerstick 05/25/2024 Inhouse Glucose Fingerstick 100 Hemoglobin A1c 04/11/2024 Inhouse Hemoglobin A1c 8.1% Glucose Fingerstick 04/11/2024 Inhouse Glucose Fingerstick 215 CBC With Differential/Milena telet 03/11/2024 [facility] WBC 6.2 x10E3/uL 3.4-10. 8 RBC 3.05 x10E6/uL Low 3.77-5. 28 Hemoglobin 9.8 g/dL Low 11.1-15 .9 Hematocrit 29.9 % Low 34.0-46 .6 MCV 98 fL High 79-97 MCH 32.1 pg 26.6-33 .0 MCHC 32.8 g/dL 31.5-35 .7 RDW 14.3 % 11.7-15 .4 Platelets 289 x10E3/uL 150-450 Neutrophils 70 % Not Estab. Lymphs 18 % Not Estab. Monocytes 6 % Not Estab. Eos 4 % Not Estab. Basos 1 % Not Estab. Immature Cells TNP Neutrophils (Absolute) 4.4 x10E3/uL 1.4-7.0 Lymphs (Absolute) 1.1 x10E3/uL 0.7-3.1 Monocytes(Absol u te) 0.4 x10E3/uL 0.1-0.9 Eos (Absolute) 0.3 x10E3/uL 0.0-0.4 Baso (Absolute) 0.0 x10E3/uL 0.0-0.2 Immature Granulocytes 1 % Not Estab. Immature Grans (Abs) 0.1 x10E3/uL 0.0-0.1 NRBC TNP Hematology Comments: TNP Vitamin B12 03/11/2024 [facility] Vitamin B12 593 pg/mL 232-124 5 Vitamin B12 02/17/2024 [facility] Vitamin B12 <pending> Reticulocyte Count 02/09/2024 [facility] Reticulocyte Count 1.9 % 0.6-2.6 Methylmalonic Acid, Serum 02/09/2024 [facility] Methylmalonic Acid, Serum 662 nmol/L High 0-378 Ferritin 02/09/2024 [facility] Ferritin 94 ng/mL 15-150 Homocyst(E)Ine, Plasma 02/09/2024 [facility] Homocyst(e)ine 21.8 umol/L High 0.0-17. 2 Immunofixatin Serum 02/09/2024 [facility] Immunoglobulin G, Qn, Serum 870 mg/dL 586-160 2 Immunoglobulin A, Qn, Serum 159 mg/dL 87-352 Immunoglobulin M, Qn, Serum 61 mg/dL 26-217 Immunofixation Result, Serum See Comment: 1 Vitamin B12 And Folate 02/09/2024 [facility] Vitamin B12 202 pg/mL Low 232-124 5 Folate (Folic Acid), Serum 4.9 ng/mL >3.0 2 Iron And Tibc 02/09/2024 [facility] Iron Bind.Cap.(Tibc) 292 g/dL 250-450 Uibc 245 g/dL 118-369 Iron 47 g/dL 27-139 Iron Saturation 16 % 15-55 Ferritin 02/05/2024 [facility] Ferritin <pending> Immunofixatin Serum 02/05/2024 [facility] Immunofixatin Serum <pending> Reticulocyte Count 02/05/2024 [facility] Reticulocyte Count <pending> TSH Rfx on Abnormal to Free T4 02/02/2024 [facility] TSH RFX On Abnormal To Free T4 4.640 uIU/mL High 0.450-4 .500 T4,Free (Direct) 0.85 ng/dL 0.82 -1. 77 CBC With Differential/Milena telet 02/02/2024 [facility] WBC 6.7 x10E3/uL 3.4-10. 8 RBC 2.89 x10E6/uL Low 3.77-5. 28 Hemoglobin 9.3 g/dL Low 11.1-15 .9 Hematocrit 29.3 % Low 34.0-46 .6 MCV 101 fL High 79-97 MCH 32.2 pg 26.6-33 .0 MCHC 31.7 g/dL 31.5-35 .7 RDW 13.6 % 11.7-15 .4 Platelets 297 x10E3/uL 150-450 Neutrophils 67 % Not Estab. Lymphs 15 % Not Estab. Monocytes 8 % Not Estab. Eos 8 % Not Estab. Basos 1 % Not Estab. Immature Cells TNP Neutrophils (Absolute) 4.6 x10E3/uL 1.4-7.0 Lymphs (Absolute) 1.0 x10E3/uL 0.7-3.1 Monocytes(Absol u te) 0.5 x10E3/uL 0.1-0.9 Eos (Absolute) 0.5 x10E3/uL High 0.0-0.4 Baso (Absolute) 0.0 x10E3/uL 0.0-0.2 Immature Granulocytes 1 % Not Estab. Immature Grans (Abs) 0.0 x10E3/uL 0.0-0.1 NRBC [facility] Hematology Comments: TNP CMP14 02/02/2024 [facility] Glucose 220 mg/dL High 70-99 BUN 43 mg/dL High 8-27 Creatinine 1.33 mg/dL High 0.57-1. 00 eGFR 44 mL/min/1.7 3 Low >59 Sodium 144 mmol/L 134-144 Potassium 5.3 mmol/L High 3.5-5.2 Chloride 112 mmol/L High 96-106 Carbon Dioxide, Total 17 mmol/L Low 20-29 Calcium 9.0 mg/dL 8.7-10. 3 Protein, Total 6.2 g/dL 6.0-8.5 Albumin 3.8 g/dL Low 3.9-4.9 Globulin, Total 2.4 g/dL 1.5-4.5 Bilirubin, Total <0.2 mg/dL 0.0- 1.2 Alkaline Phosphatase 69 IU/L 44-121 Ast (Sgot) 22 IU/L 0-40 Alt (SGPT) 20 IU/L 0-32 Lipid Panel 02/02/2024 [facility] Cholesterol, Total 130 mg/dL 100-199 Triglycerides 186 mg/dL High 0-149 HDL Cholesterol 33 mg/dL Low >39 VLDL Cholestero l Rios 31 mg/dL 5-40 LDL Chol Calc (Nih) 66 mg/dL 0-99 LDL Calc Comment: TNP TSH RFX On Abnormal To Free T4 01/05/2024 [facility] TSH RFX On Abnormal To Free T4 <pending> Hemoglobin A1c 12/31/2023 Inhouse Hemoglobin A1c 7.7% Glucose Fingerstick 12/31/2023 Inhouse Glucose Fingerstick 198 Culture Urine 07/15/2023 [facility] Specimen Description URINE Special Requests NONE Culture NO GROWTH Report Status FINAL 07/16/2023 3 Urinalysis Complete 07/15/2023 [facility] Appear/Color LIGHT YELLOW 4 SP. [place] 1.023 (1.002- 1.030) Urine PH 6.5 (5.0-8. 0) Urine Albumin TRACE Abnormal (Neg) Urine Glucose 4+ Abnormal (Neg) Urine Ketones NEGATIVE (Neg) Urine Bilirubin NEGATIVE (Neg) Urine Hemoglobin NEGATIVE (Neg) Urine Nitrite NEGATIVE (Neg) Urine Leukocyte 2+ Abnormal (Neg) Urobilinogen NORMAL mg/dL (Norm) Urine WBCs 87 /HPF High (0-5) Urine RBCs 2 /HPF (0-3) Squamous Epith 1 /HPF (0-8) Hemoglobin A1c 07/15/2023 Inhouse Hemoglobin A1c 8.9% Glucose Fingerstick 07/15/2023 Inhouse Glucose Fingerstick 143 TSH 07/10/2023 [facility] TSH 1.56 uIU/mL (0.4-4. 2) Comprehensive Metabolic Panl 01/07/2023 [facility] Glucose 140 mg/dL High (70-99) BUN 22 mg/dL (8-23) Creatinine 1.0 mg/dL (0.5-1. 0) Sodium 140 mmol/L (133-14 5) Potassium 5.1 mmol/L (3.6-5. 2) Chloride 103 mmol/L (98-107 ) Bicarbonate 24 mmol/L (22-29) Anion Gap 13 (4-17) Albumin 4.8 GM/DL (3.4-4. 8) Calcium 10.2 mg/dL (8.6-10 .5) Bilirubin,Total 0.6 mg/dL (0-1.2 ) Total Protein 7.2 GM/DL (6.2-8. 2) Ag Ratio 2.0 Ast 19 U/L (0-32) Alk Phos 63 U/L (35-104 ) Alt 24 U/L (0-33) Estimated GFR Creatinine 65 ML/MIN/1.7 3M2 5 Glucose Fingerstick 01/07/2023 Inhouse Glucose Fingerstick 160 Hemoglobin A1c 01/07/2023 Inhouse Hemoglobin A1c 9.0% TSH With Reflex To FT4 01/07/2023 [facility] TSH With Reflex To FT4 1.81 uIU/mL (0.4-4. 2) Complete Abc With Diff 01/07/2023 [facility] WBC 7.2 K/MM3 (4.0-11 .0) RBC 4.42 M/MM3 (4.20-5 .40) HGB 14.8 GM/DL (11.7-1 5.5) HCT 47.4 % High (35.7-4 5.8) MCV 107.2 FL High (80.0-1 00.0) MCH 33.5 pg (27.0-3 4.0) MCHC 31.2 g/dL Low (33.0-3 7.0) PLT 303 K/MM3 (150-46 0) RDW-SD 54.7 FL High (<47.0) MPV 10.4 FL (9.4-12 .4) Automated NRBC 0.0 #/100WBC'S Abs. NRBC 0.0 K/MM3 Neut # 3.9 K/MM3 (1.3-7. 0) Lymph # 2.1 K/MM3 (0.8-3. 1) Sawyer# 0.5 K/MM3 (0.4-0. 9) Eo # 0.6 K/MM3 High (0.0-0. 4) Baso # 0.1 K/MM3 (0.0-0. 1) Abs. Imm Gran 0.0 K/MM3 Neut 55.0 % (44-76) Lymph 28.8 % (15-43) Monocyte 6.8 % (4.5-10 .5) Eo 8.2 % High (0-6) Baso 0.8 % (0-2) Imm Gran 0.4 % Lipid Panel 01/07/2023 [facility] Cholesterol, Total 157 mg/dL (<200) Triglyceride 228 mg/dL High (<150) HDL Chol 40 mg/dL (>39) LDL Cholesterol , Calculated 71 mg/dL (0-130) Non HDL Cholesterol (Calc) 117 mg/dL (<160) Hemoglobin A1c 09/29/2022 Inhouse Hemoglobin A1c 8.5% Glucose Fingerstick 09/29/2022 Inhouse Glucose Fingerstick 182 Hemoglobin A1c 02/27/2022 Inhouse Hemoglobin A1c 9.0 Glucose Fingerstick 02/27/2022 Inhouse Glucose Fingerstick 125 TSH With Reflex To FT4 12/18/2021 [facility] TSH With Reflex To FT4 2.42 uIU/mL (0.4-4. 2) Comprehensive Metabolic Panl 12/18/2021 [facility] Glucose 117 mg/dL High (70-99) BUN 22 mg/dL (8-23) Creatinine 1.0 mg/dL (0.5-1. 0) Sodium 142 mmol/L (133-14 5) Potassium 4.5 mmol/L (3.6-5. 2) Chloride 104 mmol/L (98-107 ) Bicarbonate 21 mmol/L Low (22-29) Anion Gap 17 (4-17) Albumin 4.9 GM/DL High (3.4-4. 8) Calcium 10.2 mg/dL (8.6-10 .5) Bilirubin,Total 0.5 mg/dL (0-1.2 ) Total Protein 7.5 GM/DL (6.2-8. 2) Ag Ratio 1.9 Ast 17 U/L (0-32) Alk Phos 72 U/L (35-104 ) Alt 21 U/L (0-33) Estimated GFR Creatinine 67 ML/MIN/1.7 3M2 6 Fingerstick Glucose 11/20/2021 Inhouse Z#Other Observations 102 Hemoglobin A1c 11/20/2021 Inhouse Hemoglobin A1c 7.9 1 The immunofixation p attern appears unremarkable. Evidence of monoclonal protein is not apparent. 2 A serum folate hany ntration of less than 3.1 ng/mL is considered to represent clinical deficiency. 3 FINAL 07/16/2023 4 CLEAR 5 Creatinine based est imated glomerular filtration (eGFR) in adults is calculated using the [employer] recommended 2020 CKD-EPI equation. Estimates GFR from serum creatinine, age and sex. 6 Creatinine based est imated glomerular filtration (eGFR) in adults is calculated using the National [employer] recommended 2020 CKD-EPI equation. Estimates GFR from serum creatinine, age and sex. Procedures Date Code Description Status 01/07/2023 49023 Collection Of Venous Blood B y Venipuncture Completed Medical Devices Description No Information Available Encounters Type Date Location Provider Dx Diagnosis Office Visit 03/17/2025 9:55a Main Office Nimo Dimas M.D. I10 Essential (primary) hypertension E11.65 Type 2 diabetes mehul itus with hyperglycemia Assessments Date Code Description Provider 03/17/2025 I10 Essential (primary) hyperten everardo Nimo Dimas M.D. 03/17/2025 E11.65 Type 2 diabetes mellitus with hyperglycemia Nimo Dimas M.D. Plan of Treatment Future Appointment(s):* 05/29/2025 3:00 pm - Nimo Dimas M.D. at Main Office 01/06/2025 - Nimo Dimas M.D.* E11.65 Type 2 diabetes mellitus with hyperglycemia * E11.21 Type 2 diabetes mellitus with diabetic nephropathy * G47.33 Obstructive sleep apnea hypopnea * F41.1 Generalized anxiety disorder * J96.11 Chronic respiratory failure with hypoxia * I27.0 Idiopathic pulmonary arterial hypertension * Z99.81 Dependence on supplemental oxygen * E03.9 Hypothyroidism, unspecified * K75.81 Nonalcoholic steatohepatitis ([place]) * I10 Essential (primary) hypertension * D63.8 Anemia in other chronic diseases classified elsewhere Functional Status Description No Information Available Mental Status Description No Information Available Referrals Refer to Dr Reason for Referral Status Appt Fernando Perkins MD pt having persistent pain right medial knee since prolonged kneeling, affecting gait would like to see orthopedics Closed 05/28/2022 [address] [facility] [address] [place], [place] [id number] [phone]
--- OUTSIDE RECORDS SUMMARY | 2025-04-04 14:47 | XMS_ITS | Clinical Summary ---
Author Organization [address] [facility] Address [address] [place] [address] Phone Care Team Providers Care Military Education Coordinator Name Role Phone Nimo Dimas MD Primary Care Provid er Encounters Date Type Department Care Team Description 02/07/2025 Lab Requisition [facility] - Main Lab [address] [facility] [place] [address] Lynda Ortega PA Acute cystitis without hematuria; Urinary tract infection, site not specified from Last 3 Months Surgical History Surgery Date Site/Laterality Comments SECTION PROCEDURE: SECTION Medical History Medical History Date Comments Asthma DX:Asthma Diabetes mellitus ([facility]/HCC V24, CMS/HCC V28) DX:Diabetes mellitus ([facility]) High blood pressure DX:High bloo d pressure [...] Breast Cancer Screening 1955 Colorectal Cancer Screening: Colonoscopy 1955 DTaP,Tdap,and Td Vaccines (1 - Tdap) 1975 Pneumococcal Vaccine: 50+ Ye ars (1 of 1 - PCV) 2006 RSV Immunization Adult Patie nts (1 - Risk 50-74 years 1-dose series) 2006 Zoster Vaccines (1 of 2) 2006 Falls Risk Assessment 04/09/2022 Hepatitis C Screening 04/09/2022 Medicare Annual Wellness Visit 04/09/2022 Osteoporosis Screening (Bone Density Screening) 04/09/2022 Social Influencers of Health Screening 04/09/2022 Depression Screening 05/11/2024 COVID-19 Vaccine ( - 2024-2 6 season) 2025 Influenza Vaccine (#1) 2025 HIB Vaccines Aged Out No longer eligi [...] age to complete this topic Meningococcal B Vaccine Aged Out No l onger eligible based on patient's age to complete this topic RSV Immunization Patients Un nilesh 20 months Aged Out No longer eligible b ased on patient's age to complete this topic Varicella Vaccines Aged Out No longer eligible based on patient's age to complete this topic Procedures Procedure Name Priority Date/Time Associated Diagnosis Comments CULTURE URINE Routine 02/07/2025 12:00 AM EDT Acute cystitis without hematuria Urinary tract infection, site not specified from Last 3 Months Results * Culture urine (02/07/2025 12:00 AM EDT) Culture, Urine 10,000-49,000 CFU/mL Mixed urogenital giovanny, no uropathogens present. Suggest repeat specimen if clinically indicated. 02/08/2025 2:15 PM EDT [facility] ([facility] Urine Urine specimen obtained by clean catch procedure / Unknown 02/07/2025 02/07/2025 6:23 PM EDT [facility] MICROBIOLOGY - GENERAL ORD ERABLES Final Result [facility] ([facility] [address] [place] [address], from Last 3 Months Insurance MEDICARE [facility] Care Teams Military Education Coordinator Relationship Specialty Start Date End Date Nimo Dimas MD [address] [place] [address] [place] [address] PCP - General 05/01/22
--- OUTSIDE RECORDS SUMMARY | 2025-04-04 14:47 | XMS_ITS | Encounter Summary ---
Author Organization [facility] Address [address] [place] [address] Care Team Providers Care Shaker Tender Name Role Phone Nimo Dimas MD Primary Care Provid er Encounter Details Date Type Department Care Team (Late st Contact Info) Description 02/07/2025 Lab Requisition [facility] - Main Lab [address] [facility] [place] [address] Lynda Ortega PA [address] [facility] [address] [place] [address] Acute cystitis without hematuria; Urinary tract infection, site not specified Social History Tobacco Use Types Packs/Day Years Used Date Smoking Tobacco: Never Assessed Comments Unknown Sex and Gender Information Value Date Recorded Sex Assigned at Not on file Legal Sex Female 4:46 PM EST Gender Identity Not on file Sexual Orientation Not on file documented as of this encounter Plan of Treatment Not on file documented as of this encounter Procedures Procedure Name Priority Date/Time Associated Diagnosis Comments CULTURE URINE Routine 02/07/2025 12:00 AM EDT Acute cystitis without hematuria Urinary tract infection, site not specified documented in this encounter Results * Culture urine (02/07/2025 12:00 AM EDT) Culture, Urine 10,000-49,000 CFU/mL Mixed urogenital giovanny, no uropathogens present. Suggest repeat specimen if clinically indicated. 02/08/2025 2:15 PM EDT [facility] ([facility]) [facility] Urine Urine specimen obtained by clean catch procedure / Unknown 02/07/2025 02/07/2025 6:23 PM EDT us Lynda [facility] MICROBIOLOGY - GENERAL ORD ERABLES Final Result [facility] ([facility]) [facility] [address] [place] [address], documented in this encounter Visit Diagnoses Diagnosis Acute cystitis without hematuria Urinary tract infection, site not specified documented in this encounter Care Teams Shaker Tender Relationship Specialty Start Date End Date Nimo Dimas MD [address] [place] [address] [place] [address] PCP - General 05/01/22 documented as of this encounter
--- OUTSIDE RECORDS SUMMARY | 2025-04-04 14:47 | XMS_ITS | Clinical Summary ---
Author Organization [facility] Address [address] [place] [phone] Phone Care Team Providers Care Lodging House Keeper Name Role Phone Nimo Dimas MD Primary [...] Take 10 mg by mouth 06/04/2017 Active insulin NPH, Isophane, (NovoLIN N) 100 [...] mouth 1 (one) time each day Active Epoprostenol Sodium (VELETRI IV) Infuse into a venous catheter Active TADALAFIL PO Take by mouth Act zee Active Problems Problem Noted Date Diagnosed Date Stage 3a chronic kidney disease 02/15/2025 Chronic kidney disease, stage 2 (mild) Cellulitis [...] Encounters Date Type Department Care Team Description 02/15/2025 11:45 AM EDT Office Visit [facility] [address] [phone] Selene Lockwood ARNP Stage 3a chronic kidney disease (HCC) (Primary Dx); Hypertensive disorder; Anemia, not otherwise specified; Hyperkalemia; Renal stone 02/14/2025 Orders Only [facility] [address] [phone] Selene Lockwood ARNP Chronic kidney disease, stage 2 (mild) (Primary Dx); Hypertensive disorder; Hyperkalemia 02/10/2025 Orders Only [facility] [address] [phone] Pierre Lyons Chronic kidney disease, stage 2 (mild) (Primary Dx) 02/05/2025 Orders Only [facility] [address] [phone] Selene Lockwood ARNP Acute nontraumatic kidney injury, not otherwise specified (HCC); Hypertensive disorder; Anemia, not otherwise specified; Renal stone from Last 3 Months Immunizations Immunization Administration Dates Next Due Pneumococcal Conjugate 13-Valent [...] Sign Reading Time Taken Comments Blood Pressure 150/72 02/15/2025 12:05 PM EDT Pulse 89 02/15/2025 12:05 PM EDT Temperature - - Respiratory Rate - - Oxygen Saturation 95% 02/15/2025 12:05 PM EDT Inhaled Oxygen Concentration - - Weight 122 kg (270 lb) 02/15/2025 12:05 PM EDT Height 157.5 cm (5' 2 ) 02/04/2023 4:21 PM EDT Body Mass Index 49.38 02/04/2023 4:21 PM EDT Plan of Treatment Upcoming Encounters Date Type Department Care Team (Late st Contact Info) Description 08/16/2025 10:45 AM EDT [facility] Visit [facility] [address] [phone] LockwoodSeleneMARIETTA [address] [phone] Health Maintenance Due Date Last Done Comments Breast Cancer Screening 1955 Colorectal Cancer Screening: Annual FOBT 2005 Colorectal Cancer Screening: Colonoscopy 2005 Colorectal Cancer Screening: Sigmoidoscopy 2005 Hepatitis B Vaccine (1 of 3 - Risk 3-dose series) 05/12 Pneumococcal Vaccine: 50+ Ye ars (2 of 2 - PPSV23, PCV20, or PCV21) 09/14/2019 07/20/2019 Diabetes: Hemoglobin A1C 11/19/2021 Diabetes: Ophthalmology Exam 11/19/2021 Diabetes: Pedal Pulse Checked 11/19/2021 Diabetes: Sensory Foot Exam 11/19/2021 Diabetes: Visual Foot Exam 11/19/2021 Influenza Vaccine (#1) 2025 Pneumococcal Vaccine: Peds ( 0 to 5 Years) and At-Risk Patients (6 to 49 Years) Discontinued 07/20/2019 Procedures Procedure Name Priority Date/Time Associated Diagnosis Comments BASIC METABOLIC PANEL Routine 03/30/2025 1:44 PM EST Chronic kidney disease, stage 2 (mild) Hypertensive disorder Hyperkalemia CBC AND DIFFERENTIAL Routine 02/13/2025 12:00 PM EDT Chronic kidney disease, stage 2 (mild) IRON PANEL (FE, TIBC, TSAT) Routine 02/13/2025 12:00 PM EDT Chronic kidney disease, stage 2 (mild) COMPREHENSIVE METABOLIC PANEL Routine 02/13/2025 12:00 PM EDT Chronic kidney disease, stage 2 (mild) FERRITIN Routine 02/13/2025 12:00 PM EDT Chronic kidney disease, stage 2 (mild) from Last 3 Months Results * (ABNORMAL) Basic metabolic panel (03/30/2025 1:44 PM EST) Glucose 124(H) 70 - 99 mg/dL [facility] BUN 32(H) 8 - 27 mg/dL [facility] Sodium 142 134 - 144 mmol/L [facility] Potassium 4.9 3.5 - 5.2 mmol/L [facility] Chloride 106 96 - 106 mmol/L [facility] Bicarbonate (CO2) 21 20 - 29 mmol/L [facility] Calcium 9.8 8.7 - 10.3 mg/dL [facility] Creatinine 1.34(H) 0.57 - 1.00 mg/dL [facility] eGFR CKD-EPI CR 2020 43(L) >59 mL/min/1.7 3 [facility] BUN/Creatinine Ratio 24 12 - 28 [facility] Blood Venous blood / Unknown 03/30/2025 1:44 PM EST 03/30/2025 Selene Lockwood [facility] LAB BLOOD ORDERABLES Final Result [facility] [address] [place] [phone] * Iron Panel (Fe, TIBC, TSAT) (02/13/2025 12:00 PM EDT) TIBC 336 250 - 450 ug/dL [facility] UIBC 252 118 - 369 ug/dL [facility] Iron 84 27 - 139 ug/dL [facility] Iron Saturation (TSat) 25 15 - 55 % [facility] Blood Venous blood / Unknown 02/13/2025 12:00 PM EDT 02/13/2025 Selene Lcokwood [facility] LAB BLOOD ORDERABLES Final Result [facility] [address] [place] [phone] * (ABNORMAL) CBC and differential (02/13/2025 12:00 PM EDT) WBC 6.4 3.4 - 10.8 x10E3/uL [facility] RBC 3.45(L) 3.77 - 5.28 x10E6/uL [facility] Hemoglobin 11.8 11.1 - 15.9 g/dL [facility] Hematocrit 34.6 34.0 - 46.6 % [facility] MCV 100(H) 79 - 97 fL [facility] MCH 34.2(H) 26.6 - 33.0 pg [facility] MCHC 34.1 31.5 - 35.7 g/dL [facility] RDW 13.5 11.7 - 15.4 % [facility] Platelets 342 150 - 450 x10E3/uL [facility] Neutrophils Relative 63 Not Estab. % [facility] Lymphocytes Relative 24 Not Estab. % [facility] Monocytes 7 Not Estab. % [facility] Eosinophils Relative 5 Not Estab. % [facility] Basophils Relative 1 Not Estab. % [facility] Neutrophils Absolute 4.2 1.4 - 7.0 x10E3/uL [facility] Lymphocytes Absolute 1.5 0.7 - 3.1 x10E3/uL [facility] Monocytes Absolute 0.4 0.1 - 0.9 x10E3/uL [facility] Eosinophils Absolute 0.3 0.0 - 0.4 x10E3/uL [facility] Basophils Absolute 0.1 0.0 - 0.2 x10E3/uL [facility] Immature Granulocytes 0 Not Estab. % [facility] Immature Grans (Absolute) 0.0 0.0 - 0.1 x10E3/uL [facility] Blood Venous blood / Unknown 02/13/2025 12:00 PM EDT 02/13/20[facility] [address] [place] [phone] * Ferritin (02/13/2025 12:00 PM EDT) Pathologist [facility] Ferritin 34 15 - 150 ng/mL [facility] Blood Venous blood / Unknown 02/13/2025 12:00 PM EDT 02/13/2025 [email or web address] LAB BLOOD ORDERABLES Final Result [facility] [address] [place] [phone] * (ABNORMAL) Comprehensive metabolic panel (02/13/2025 12:00 PM EDT) Glucose 95 70 - 99 mg/dL [facility] BUN 41(H) 8 - 27 mg/dL [facility] Creatinine 1.27(H) 0.57 - 1.00 mg/dL [facility] eGFR CKD-EPI CR 2020 46(L) >59 mL/min/1.7 3 [facility] BUN/Creatinine Ratio 32(H) 12 - 28 [facility] Sodium 143 134 - 144 mmol/L [facility] Potassium 5.4(H) 3.5 - 5.2 mmol/L [facility] Chloride 106 96 - 106 mmol/L [facility] Bicarbonate (CO2) 20 20 - 29 mmol/L [facility] Calcium 9.7 8.7 - 10.3 mg/dL [facility] Total Protein 7.5 6.0 - 8.5 g/dL [facility] Albumin 4.6 3.9 - 4.9 g/dL [facility] Globulin 2.9 1.5 - 4.5 g/dL [facility] Total Bilirubin 0.4 0.0 - 1.2 mg/dL [facility] Alkaline Phosphatase 54 49 - 135 IU/L [facility] AST (SGOT) 16 0 - 40 IU/L [facility] ALT (SGPT) 16 0 - 32 IU/L [facility] Blood Venous blood / Unknown 02/13/2025 12:00 PM EDT 02/13/2025 us Selene Lockwood [facility] LAB BLOOD ORDERABLES Final Result [facility] [address] [place] [phone] from Last 3 Months Insurance Medicare [facility] Medicare [facility] Care Teams Lodging House Keeper Relationship Specialty Start Date End Date Nimo Dimas MD [address] [place] [address] [address] [place] [phone] PCP - General Endocrinology 12/18/21
--- OUTSIDE RECORDS SUMMARY | 2025-04-08 19:00 | XMS_ITS | Clinical Summary ---
Author Organization Unknown Care Team Providers Care Wood Router Hand Name Role Phone TERELL BARON OTHER, ROOSEVELT Unavailable Un available TYLER AIR POLLUTION COMPLIANCE INSPECTOR, ROOSEVELT Unavailable Unavailable BABITA PT, TEJAS Unavailable Unavailable LENGIEZA OT, KAI Unavailable Unavailable MBGIOVANNA ELECTRICAL ENGINEERING DRAFTSPERSON, LLOYD Unavailable Unavailable CONDINO LUIS FELIPE/RUSH, XIMENA Unavailable Unav carol ann DOLL RN, JARAD Unavailable Unavailable Payers Payer Name Policy Type Policy Number Effective Date Expira tion Date MEDICARE.NGS.PDGM [id number] Problems Condition Name Condition Details Condition Category Status Onset Date Resolution Date Last Treatment Date Treating Clinician Comments ENCOUNTER FOR ADJUSTMENT AND MANAGEMENT OF VAD Active 8-05 00:00: 00 MALIG NEOPLM OF UPPER-OUTER QUADRANT [...] HYPERLIPIDEM IA, UNSPECIFIED Active 05-11 00:00: 00 ELECTROPLATER (CURRENT) USE OF INSULIN Active 08-18 00:00: 00 FDC (CURRENT) USE OF ORAL HYPOGLYCEMIC DRUGS Active 08-18 00:00: 00 DEPENDENCE ON SUPPLEMENTAL OXYGEN Active 08-18 00:00: 00 ELECTROPLATER (CURRENT) USE OF INHALED STEROIDS Active 08-18 [...] 0.5 mg tablet 08-05 00:00: 00 Yes [id number] ANXIETY 1 tablet EVERY 4 HOURS 1 tablet EVERY 4 HOURS (route: oral) Med Classific ation: Central Nervous System Agents Wixela Inhub 250 mcg-50 mcg/dose powder for inhalation 07-27 00:00: 00 Yes [id number] ASTHMA 1 inhalat ion TWICE A DAY 1 inhalation TWICE A DAY (route: inhalation ) Med Classific ation: Respirato ry Therapy Agents Humulin N NPH U-100 Insulin (isophane susp) 100 unit/mL [facility] 08-18 00:00: 00 Yes [id number] DIABETES 30 unit DAILY 30 unit DAILY (route: subcutaneo us) Med Classific ation: Endocrine Humulin N NPH U-100 Insulin (isophane susp) 100 unit/mL [facility] 08-18 00:00: 00 10-12 23:59 :00 No [id number] DIABETIC 60 unit DAILY 60 unit DAILY (route: subcutaneo us) Med Classific ation: Endocrine ipratropium 0.5 mg-albutero l 3 mg (2.5 mg base)/3 mL nebulizatio n soln 08-18 00:00: 00 Yes [id number] ASTHMA 3 mL 2 TIMES DAILY 3 mL 2 TIMES DAILY (route: inhalation ) Med Classific ation: Respirato ry Therapy Agents melatonin 10 mg tablet 08-18 00:00: 00 02-09 23:59 :00 No [id number] INSOMNIA 1 tablet BEDTIME 1 tablet BEDTIME (route: oral) Med Classific ation: Central Nervous System Agents Novolog U-100 Insulin aspart 100 unit/mL subcutaneou s solution 08-18 00:00: 00 02-09 23:59 :00 No [id number] DIABETES 2 unit 2 TIMES DAILY 2 unit 2 TIMES DAILY (route: subcutaneo us) Med Classific ation: Endocrine O2 - OXYGEN 08-18 00:00: 00 10-12 23:59 :00 No [id number] ASTHMA 2 Liter O2 - CONTINUOUS 2 Liter O2 - CONTINUOUS (route: Oxygen) Med Classific ation: Medical Oxygen OXYGEN 08-18 00:00: 00 Yes [id number] ASTHMA 4 Liter BEDTIME 4 Liter BEDTIME (route: Oxygen) Med Classific ation: Medical Oxygen Veletri 1.5 mg intravenous solution 08-18 00:00: 00 10-12 23:59 :00 No [id number] PULMONARY HTN 2 vial DAILY 2 vial DAILY (route: intravenou s) Med Classific ation: Cardiovas cular Therapy Agents albuterol sulfate HFA 90 mcg/actuati on aerosol inhaler 08-18 00:00: 00 Yes [id number] SOB 2 puff EVERY 6 HOURS 2 puff EVERY 6 HOURS (route: inhalation ) Med Classific ation: Respirato ry Therapy Agents atorvastati n 20 mg tablet 08-18 00:00: 00 Yes [id number] CHOLESTEROL 1 tablet BEDTIME 1 tablet BEDTIME (route: oral) Med Classific ation: Cardiovas cular Therapy Agents fluoxetine 10 mg capsule 08-18 00:00: 00 Yes [id number] ANXIETY 3 capsule DAILY 3 capsule DAILY (route: oral) Med Classific ation: Central Nervous System Agents Jardiance 25 mg tablet 08-18 00:00: 00 01-25 23:59 :00 No [id number] DM 1 tablet DAILY 1 tablet DAILY (route: oral) Med Classific ation: Endocrine levothyroxi ne 75 mcg tablet 08-18 00:00: 00 Yes [id number] HYPOTHYROID ISM 1 tablet DAILY 1 tablet DAILY (route: oral) Med Classific ation: Endocrine metformin 500 mg tablet 08-18 00:00: 01-25 23:59 :00 No [id number] DIABETES 2 tablet 2 TIMES DAILY 2 tablet 2 TIMES DAILY (route: oral) Med Classific ation: Endocrine montelukast 10 mg tablet 08-18 00:00: 00 10-12 23:59 :00 No [id number] ASTHMA 2 tablet BEDTIME 2 tablet BEDTIME (route: oral) Med Classific ation: Respirato ry Therapy Agents Trulicity 3 mg/0.5 mL subcutaneou s pen injector 08-18 00:00: 00 01-25 23:59 :00 No [id number] DIABETES .5 mL WEEKLY .5 mL WEEKLY (route: subcutaneo us) Med Classific ation: Endocrine hydrocortis one 1 % lotion 09-24 00:00: 00 Yes [id number] RASH ABOVE LEFT CHEST PORT Per instruc tions 2 TIMES DAILY Per instructio ns 2 TIMES DAILY (route: topical) Med Classific ation: Dermatolo gical tramadol 50 mg tablet 09-24 00:00: 00 10-12 23:59 :00 No [id number] SEVERE PAIN 1 tablet EVERY 8 HOURS 1 tablet EVERY 8 HOURS (route: oral) Med Classific ation: Analgesic , Anti-infl ammatory or Antipyret ic Kayla Allergy 180 mg tablet 10-17 00:00: 00 Yes [id number] ALLERGIES 1 tablet DAILY 1 tablet DAILY (route: oral) Med Classific ation: Respirato ry Therapy Agents Humulin N NPH U-100 Insulin (isophane susp) 100 unit/mL subcutaneou s 10-17 00:00: 00 02-09 23:59 :00 No [id number] DM 60 unit DAILY 60 unit DAILY (route: subcutaneo us) Alternate Route: SUBCUTANE OUS. Med Classific ation: Endocrine montelukast 10 mg tablet 10-17 00:00: 00 Yes [id number] ASTHMA 1 tablet BEDTIME 1 tablet BEDTIME (route: oral) Med Classific ation: Respirato ry Therapy Agents OXYGEN 10-17 00:00: 00 Yes [id number] BREATHING 2.5 Liter O2 - CONTINUOUS 2.5 Liter O2 - CONTINUOUS (route: Oxygen) Med Classific ation: Medical Oxygen Veletri 1.5 mg intravenous solution 10-17 00:00: 00 02-09 23:59 :00 No [id number] PULMONARY HTN 3 vial DAILY 3 vial DAILY (route: intravenou s) Med Classific ation: Cardiovas cular Therapy Agents meloxicam 15 mg tablet 10-28 00:00: 00 02-09 23:59 :00 No [id number] KNEE PAIN 1 tablet DAILY 1 tablet DAILY (route: oral) Med Classific ation: Analgesic , Anti-infl ammatory or Antipyret ic tadalafil 20 mg tablet 11-04 00:00: 00 11-11 23:59 :00 No [id number] PULMONARY HTN 2 tablet BEDTIME 2 tablet BEDTIME (route: oral) Med Classific ation: Drugs to treat Erectile Dysfuncti on tadalafil 20 mg tablet 11-11 00:00: 00 02-09 23:59 :00 No [id number] PULMONARY HYPOTENSION 1 tablet BEDTIME 1 tablet BEDTIME (route: oral) Med Classific ation: Drugs to treat Erectile Dysfuncti on colestipol 1 gram tablet 12-16 00:00: 00 Yes [id number] DIARRHEA 2 tablet 2 TIMES DAILY 2 tablet 2 TIMES DAILY (route: oral) Med Classific ation: Cardiovas cular Therapy Agents ondansetron HCl 4 mg tablet 12-16 00:00: 00 Yes [id number] NAUSEA 1-2 tablet EVERY 8 HOURS 1-2 tablet EVERY 8 HOURS (route: oral) Med Classific ation: Gastroint estinal Therapy Agents prochlorper azine maleate 5 mg tablet - 00:00: 00 Yes [id number] NAUSEA 1-2 tablet EVERY 6 HOURS 1-2 tablet EVERY 6 HOURS (route: oral) Med Classific ation: Gastroint estinal Therapy Agents cephalexin 250 mg tablet 815 00:00: 00 01-01 23:59 :00 No [id number] ERYTHEMA 1 tablet 4 TIMES DAILY 1 tablet 4 TIMES DAILY (route: oral) Med Classific ation: Anti-Infe ctive Agents clobetasol- emollient 0.05 % topical cream 15 00:00: 00 12-29 23:59 :00 No [id number] ERYTHEMA Per instruc tions 2 TIMES DAILY Per instructio ns 2 TIMES DAILY (route: topical) Med Classific ation: Dermatolo gical Benadryl Allergy 50 mg tablet 12-27 00:00: 00 02-09 23:59 :00 No [id number] REDNESS, WARMTY 1 tablet 3 TIMES DAILY 1 tablet 3 TIMES DAILY (route: oral) Med Classific ation: Central Nervous System Agents metformin 500 mg tablet 01-25 00:00: 00 Yes [id number] DIABETES 1 tablet 2 TIMES DAILY 1 tablet 2 TIMES DAILY (route: oral) Med Classific ation: Endocrine Lokelma 10 gram oral powder packet 02-02 00:00: 00 06-09 23:59 :00 No [id number] HYPERKALEMI A 10 gram DAILY 10 gram DAILY (route: oral) Med Classific ation: Electroly te Balance-N utritiona l Products potassium citrate ER 10 mEq (1,080 mg) tablet,exte nded release 02-02 00:00: 00 02-09 23:59 :00 No [id number] SUPPLEMENT 0.5 tablet DAILY 0.5 tablet DAILY (route: oral) Med Classific ation: Genitouri nary Therapy anastrozole 1 mg tablet 2023-05 00:00: 00 03-30 23:59 :00 No [id number] HORMONES 1 tablet DAILY 1 tablet DAILY (route: oral) Med Classific ation: Antineopl astics Humalog U-100 Insulin 100 unit/mL subcutaneou s solution 2023-05 0 00:00: 00 04-12 23:59 :00 No [id number] DM 10 unit 2 TIMES DAILY 10 unit 2 TIMES DAILY (route: subcutaneo us) Med Classific ation: Endocrine Humulin N NPH U-100 Insulin (isophane susp) 100 unit/mL subcutaneou s 2023-05 0- 00:00: 00 06-09 23:59 :00 No [id number] DM 30 unit DAILY 30 unit DAILY (route: subcutaneo us) Med Classific ation: Endocrine Humulin N NPH U-100 Insulin (isophane susp) 100 unit/mL subcutaneou s 2023-05 00:00: 00 Yes [id number] DM 65 unit BEDTIME 65 unit [facility] Med Classific ation: Endocrine Novolin N NPH U-100 Insulin isophane 100 unit/mL subcutaneou s susp 2023-05 00:00: 00 Yes [id number] DM 30 unit DAILY 30 unit DAILY (route: subcutaneo us) Med Classific ation: Endocrine Novolin N NPH U-100 Insulin isophane 100 unit/mL subcutaneou s susp 2023-05 00:00: 00 Yes [id number] DM 65 unit BEDTIME 65 unit BEDTIME ([facility] Med Classific ation: Endocrine potassium citrate ER 10 mEq (1,080 mg) tablet,exte nded release 2023-05 00:00: 00 Yes [id number] SUPPLEMENT 1 tablet DAILY 1 tablet DAILY (route: oral) Med Classific ation: Genitouri nary Therapy tadalafil 20 mg tablet 2023-05 00:00: 00 Yes [id number] PULMONARY HYPERTENSIO N 2 tablet BEDTIME 2 tablet BEDTIME (route: oral) Med Classific ation: Drugs to treat Erectile Dysfuncti on Veletri 1.5 mg intravenous solution 2023-05 00:00: 00 Yes [id number] PULMONONARY HYPERTENSIO N 4 vial DAILY 4 vial DAILY (route: intravenou s) Med Classific ation: Cardiovas cular Therapy Agents loperamide 2 mg capsule -15 00:00: 00 Yes [id number] LOOSE STOOLS 1 capsule EVERY 3 HOURS 1 capsule EVERY 3 HOURS (route: oral) Med Classific ation: Gastroint estinal Therapy Agents folic acid 1 mg tablet 2023-05 0-16 00:00: 00 Yes [id number] SUPPLEMENT 1 tablet DAILY 1 tablet DAILY (route: oral) Med Classific ation: Electroly te Balance-N utritiona [employer] Vitamin B-12 ER 2,000 mcg tablet,exte nded release 2023-05 0-16 00:00: 00 Yes [id number] SUPPLEMENT 1 tablet DAILY 1 tablet DAILY (route: oral) Med Classific ation: Electroly te Balance-N utritiona l Products valacyclovi r 1 gram tablet 2023-05 0- 00:00: 00 03-08 23:59 :00 No [id number] ANTIVIRAL 1 tablet 2 TIMES DAILY 1 tablet 2 TIMES DAILY (route: oral) Med Classific ation: Anti-Infe ctive Agents valacyclovi r 1 gram tablet 2023-05 0-30 00:00: 00 Yes [id number] ANTIVIRAL 1 tablet DAILY 1 tablet DAILY (route: oral) Med Classific ation: Anti-Infe ctive Agents cephalexin 500 mg capsule 2023-05 00:00: 00 04-07 23:59 :00 No [id number] TIP OF NOSE CELLULITIS 1 capsule 3 TIMES DAILY 1 capsule 3 TIMES DAILY (route: oral) Med Classific ation: Anti-Infe ctive Agents letrozole 2.5 mg tablet 2023-05 00:00: 00 Yes [id number] HORMONE 1 tablet DAILY 1 tablet DAILY (route: oral) Med Classific ation: Antineopl astics Humalog KwikPen (U-100) Insulin 100 unit/mL subcutaneou s 2023-05 2- 00:00: 00 Yes [id number] DIABETES 15 unit 2 TIMES DAILY 15 unit 2 TIMES DAILY (route: subcutaneo us) Med Classific ation: Endocrine doxycycline hyclate 100 mg tablet 2- 00:00: 00 06-14 23:59 :00 No [id number] INFECTION 1 tablet 2 TIMES DAILY 1 tablet 2 TIMES DAILY (route: oral) Med Classific ation: Anti-Infe ctive Agents multivitami n tablet 2- 00:00: 00 Yes [id number] SUPPLEMENT 1 tablet DAILY 1 tablet DAILY (route: oral) Med Classific ation: Electroly te Balance-N utritiona l Products zoledronic acid 4 mg/5 mL intravenous solution 2- 00:00: 00 Yes [id number] SOB 4 mg DIRECTED 4 mg DIRECTED (route: intravenou s) Med Classific ation: Endocrine doxycycline hyclate 100 mg capsule 2-04 00:00: 00 06-25 23:59 :00 No [id number] LYMPH NODES 1 capsule 2 TIMES DAILY 1 capsule 2 TIMES DAILY (route: oral) Med Classific ation: Anti-Infe ctive Agents triamcinolo ne acetonide 0.1 % dental paste 2-18 00:00: 00 07-09 23:59 :00 No [id number] TONGUE SORE Per instruc tions 2 TIMES DAILY Per instructio ns 2 TIMES DAILY (route: dental) Med Classific ation: Mouth-Thr oat-Denta l - Preparati ons amoxicillin 875 mg tablet 4-04 00:00: 00 08-18 23:59 :00 No [id number] UTI 1 tablet EVERY 12 HOURS 1 tablet EVERY 12 HOURS (route: oral) Med Classific ation: Anti-Infe ctive Agents nitrofurant oin monohydrate /macrocryst als 100 mg capsule 8-05 00:00: 00 12-21 23:59 :00 No [id number] UTI 1 capsule 2 TIMES DAILY 1 capsule 2 TIMES DAILY (route: oral) Med Classific ation: Genitouri nary Therapy Ozempic 0.25 mg or 0.5 mg (2 mg/3 mL) subcutaneou s pen injector 8-31 00:00: 00 01-23 23:59 :00 No [id number] DM 0.25 mg WEEKLY 0.25 mg WEEKLY (route: subcutaneo us) Med Classific ation: Endocrine Ozempic 0.25 mg or 0.5 mg (2 mg/3 mL) subcutaneou s pen injector 9-21 00:00: 00 Yes [id number] DM 0.5 mg WEEKLY 0.5 mg WEEKLY (route: subcutaneo us) Med Classific ation: Endocrine AZO D-Mannose 500 mg capsule 2024-05 0-15 00:00: 00 Yes [id number] UTI PREVENTION 1 capsule DAILY 1 capsule DAILY (route: oral) Med Classific ation: Alternati ve Therapy amoxicillin 500 mg-potassiu m clavulanate 125 mg tablet 2024-05 028 00:00: 00 03-15 23:59 :00 No [id number] VIRAL INFECTION 1 tablet EVERY 12 HOURS 1 tablet EVERY 12 HOURS (route: oral) Med Classific ation: Anti-Infe ctive Agents Vital Signs Vital Name Observation Time Observation Value Commen ts Temperature 2025-03-29 11:48:00.000 96.5 [degF] Temperature 2025-03-22 12:11:00.000 97.1 [degF] Temperature 2025-03-15 10:23:00.000 97.1 [degF] Temperature 2025-03-08 10:00:00.000 97.2 [degF] Temperature 2025-03-01 10:03:00.000 97.5 [degF] Temperature 2025-02-22 10:23:00.000 97.9 [degF] Temperature 2025-02-15 09:51:00.000 97.9 [degF] Pulse 2025-03-29 11:48:00.000 86 /min Pulse 2025-03-22 12:11:00.000 83 /min Pulse 2025-03-15 10:23:00.000 83 /min Pulse 2025-03-08 10:00:00.000 79 /min Pulse 2025-03-01 10:03:00.000 81 /min Pulse 2025-02-22 10:23:00.000 80 /min Pulse 2025-02-15 09:51:00.000 82 /min O2 Saturation (%) 2025-03-29 11:52:00.000 98 % O2 Saturation (%) 2025-03-22 12:11:00.000 98 % O2 Saturation (%) 2025-03-15 10:23:00.000 97 % O2 Saturation (%) 2025-03-08 10:00:00.000 96 % O2 Saturation (%) 2025-03-01 10:03:00.000 94 % O2 Saturation (%) 2025-02-22 10:23:00.000 96 % O2 Saturation (%) 2025-02-15 09:51:00.000 96 % Respirations 2025-03-29 11:48:00.000 18 /min Respirations 2025-03-22 12:11:00.000 20 /min Respirations 2025-03-15 10:23:00.000 18 /min Respirations 2025-03-08 10:00:00.000 18 /min Respirations 2025-03-01 10:03:00.000 18 /min Respirations 2025-02-22 10:23:00.000 18 /min Respirations 2025-02-15 09:51:00.000 18 /min Weight (lbs) 2025-03-29 11:52:00.000 254 [lb_av] Weight (lbs) 2025-03-22 12:13:00.000 265 [lb_av] Weight (lbs) 2025-03-15 10:28:00.000 265 [lb_av] Weight (lbs) 2025-03-08 10:00:00.000 260 [lb_av] Weight (lbs) 2025-03-01 10:03:00.000 256 [lb_av] Weight (lbs) 2025-02-22 10:23:00.000 259 [lb_av] Weight (lbs) 2025-02-15 09:51:00.000 257 [lb_av] Systolic Blood Pressure 2025-03-29 11:48:00.000 128 mm [Hg] Systolic Blood Pressure 2025-03-22 12:11:00.000 138 mm [Hg] Systolic Blood Pressure 2025-03-15 10:23:00.000 130 mm [Hg] Systolic Blood Pressure 2025-03-08 10:00:00.000 138 mm [Hg] Systolic Blood Pressure 2025-03-01 10:03:00.000 120 mm [Hg] Systolic Blood Pressure 2025-02-22 10:23:00.000 138 mm [Hg] Systolic Blood Pressure 2025-02-15 09:51:00.000 138 mm [Hg] Diastolic Blood Pressure 2025-03-29 11:48:00.000 70 mm [Hg] Diastolic Blood Pressure 2025-03-22 12:11:00.000 70 mm [Hg] Diastolic Blood Pressure 2025-03-15 10:23:00.000 70 mm [Hg] Diastolic Blood Pressure 2025-03-08 10:00:00.000 70 mm [Hg] Diastolic Blood Pressure 2025-03-01 10:03:00.000 82 mm [Hg] Diastolic Blood Pressure 2025-02-22 10:23:00.000 82 mm [Hg] Diastolic Blood Pressure 2025-02-15 09:51:00.000 80 mm [Hg] Plan of Treatment Planned Activity Planned Date Details Comments Future Scheduled Test RN TO OBSE RVE, ASSESS, EVALUATE, AND DEVELOP AN INDIVIDUALIZED PLAN OF CARE. AGENCY MAY ACCEPT ORDERS FROM CONSULTING PHYSICIANS. RN TO OBSERVE AND ASSESS, ELECTRICAL ENGINEERING DRAFTSPERSON/MOTORBOAT OPERATOR TO OBSERVE FOR RISK FOR FALLS AND INSTRUCT IN FALL PREVENTION, HOME SAFETY, MEDICATION MANAGEMENT, INFECTION PREVENTION, AND NUTRITION MANAGEMENT. RN/ELECTRICAL ENGINEERING DRAFTSPERSON/MOTORBOAT OPERATOR NURSE MAY PERFORM O2 SATURATION LEVEL ON ADMISSION AND PRN FOR RN TO ASSESS/ELECTRICAL ENGINEERING DRAFTSPERSON TO OBSERVE PATIENT, WITH NOTIFICATION TO THE PHYSICIAN IF SATURATION IS 90% IN THE ABSENCE OF MORE SPECIFIC PARAMETERS FROM THE PHYSICIAN. AGENCY MAY PERFORM A RESUMPTION OF CARE VISIT FOLLOWING ANY HOSPITAL ADMISSION. RN/ELECTRICAL ENGINEERING DRAFTSPERSON/MOTORBOAT OPERATOR TO MONITOR CO-MORBID CONDITIONS LISTED ON THE PLAN OF CARE AND ANY NEW CONDITIONS THAT PRESENT THEMSELVES DURING THIS EPISODE TO IDENTIFY CHANGES AND INTERVENE TO MINIMIZE COMPLICATIONS. [code = RN TO OBSERVE, ASSESS, EVALUATE, AND DEVELOP AN INDIVIDUALIZED PLAN OF CARE. AGENCY MAY ACCEPT ORDERS FROM CONSULTING PHYSICIANS. RN TO OBSERVE AND ASSESS, ELECTRICAL ENGINEERING DRAFTSPERSON/MOTORBOAT OPERATOR TO OBSERVE FOR RISK FOR FALLS AND INSTRUCT IN FALL PREVENTION, HOME SAFETY, MEDICATION MANAGEMENT, INFECTION PREVENTION, AND NUTRITION MANAGEMENT. RN/ELECTRICAL ENGINEERING DRAFTSPERSON/MOTORBOAT OPERATOR NURSE MAY PERFORM O2 SATURATION LEVEL ON ADMISSION AND PRN FOR RN TO ASSESS/ELECTRICAL ENGINEERING DRAFTSPERSON TO OBSERVE PATIENT, WITH NOTIFICATION TO THE PHYSICIAN IF SATURATION IS 90% IN THE ABSENCE OF MORE SPECIFIC PARAMETERS FROM THE PHYSICIAN. AGENCY MAY PERFORM A RESUMPTION OF CARE VISIT FOLLOWING ANY HOSPITAL ADMISSION. RN/ELECTRICAL ENGINEERING DRAFTSPERSON/MOTORBOAT OPERATOR TO MONITOR CO-MORBID CONDITIONS LISTED ON THE PLAN OF CARE AND ANY NEW CONDITIONS THAT PRESENT THEMSELVES DURING THIS EPISODE TO IDENTIFY CHANGES AND INTERVENE TO MINIMIZE COMPLICATIONS.] Future Scheduled Test RISK FOR H OSPITALIZATION; RN TO ASSESS/TEACH, MOTORBOAT OPERATOR/ELECTRICAL ENGINEERING DRAFTSPERSON TO OBSERVE/TEACH PATIENT/CAREGIVER ON RISK FOR HOSPITALIZATION/EMERGENCY ROOM VISITS, TEACH SIGNS AND SYMPTOMS THAT PUT PATIENT AT RISK, WHEN TO NOTIFY NURSE/PHYSICIAN OF COMPLICATIONS/DECLINE, AND WHEN TO CALL 911. [code = RISK FOR HOSPITALIZATION; RN TO ASSESS/TEACH, MOTORBOAT OPERATOR/ELECTRICAL ENGINEERING DRAFTSPERSON TO OBSERVE/TEACH PATIENT/CAREGIVER ON RISK FOR HOSPITALIZATION/EMERGENCY ROOM VISITS, TEACH SIGNS AND SYMPTOMS THAT PUT PATIENT AT RISK, WHEN TO NOTIFY NURSE/PHYSICIAN OF COMPLICATIONS/DECLINE, AND WHEN TO CALL 911.] Future Scheduled Test MEDICATION MANAGEMENT; RN/ELECTRICAL ENGINEERING DRAFTSPERSON/MOTORBOAT OPERATOR TO REVIEW MEDICATIONS FOR INTERACTIONS, EFFECTIVENESS OF DRUG THERAPY, AND SIGNS/SYMPTOMS OF ADVERSE REACTIONS. MAY INSTRUCT AND REINFORCE MEDICATION TEACHING RELATED TO THE USE OF MEDICATIONS, DOSAGE, FREQUENCY, PURPOSE, SIDE EFFECTS, AND TO REPORT COMPLICATIONS. [code = MEDICATION MANAGEMENT; RN/ELECTRICAL ENGINEERING DRAFTSPERSON/MOTORBOAT OPERATOR TO REVIEW MEDICATIONS FOR INTERACTIONS, EFFECTIVENESS OF DRUG THERAPY, AND SIGNS/SYMPTOMS OF ADVERSE REACTIONS. MAY INSTRUCT AND REINFORCE MEDICATION TEACHING RELATED TO THE USE OF MEDICATIONS, DOSAGE, FREQUENCY, PURPOSE, SIDE EFFECTS, AND TO REPORT COMPLICATIONS.] Future Scheduled Test COPD MONIT ORING RN/MOTORBOAT OPERATOR/ELECTRICAL ENGINEERING DRAFTSPERSON TO MONITOR FOR SIGNS AND SYMPTOMS OF COPD EXACERBATION, MONITOR FOR ADHERENCE TO MEDICATION AND COPD MANAGEMENT. [code = COPD MONITORING RN/MOTORBOAT OPERATOR/ELECTRICAL ENGINEERING DRAFTSPERSON TO MONITOR FOR SIGNS AND SYMPTOMS OF COPD EXACERBATION, MONITOR FOR ADHERENCE TO MEDICATION AND COPD MANAGEMENT.] Future Scheduled Test CARDIOVASC ULAR SYSTEM; RN TO ASSESS/TEACH, ELECTRICAL ENGINEERING DRAFTSPERSON/MOTORBOAT OPERATOR TO OBSERVE/TEACH RELATED TO ALTERED CARDIOVASCULAR STATUS TO MINIMIZE COMPLICATIONS AND REDUCE HOSPITALIZATION. [code = CARDIOVASCULAR SYSTEM; RN TO ASSESS/TEACH, ELECTRICAL ENGINEERING DRAFTSPERSON/MOTORBOAT OPERATOR TO OBSERVE/TEACH RELATED TO ALTERED CARDIOVASCULAR STATUS TO MINIMIZE COMPLICATIONS AND REDUCE HOSPITALIZATION.] Future Scheduled Test SKIN INTEG RITY RN TO ASSESS AND TEACH, ELECTRICAL ENGINEERING DRAFTSPERSON/MOTORBOAT OPERATOR TO OBSERVE AND TEACH INTEGUMENTARY STATUS TO IDENTIFY CHANGES AND INTERVENE TO MINIMIZE COMPLICATIONS. PROVIDE SKILLED TEACHING OF GENERAL WOUND AND SKIN CARE AND PREVENTION RELATED TO POTENTIAL FOR OR ACTUAL ALTERED SKIN INTEGRITY. [code = SKIN INTEGRITY RN TO ASSESS AND TEACH, ELECTRICAL ENGINEERING DRAFTSPERSON/MOTORBOAT OPERATOR TO OBSERVE AND TEACH INTEGUMENTARY STATUS TO IDENTIFY CHANGES AND INTERVENE TO MINIMIZE COMPLICATIONS. PROVIDE SKILLED TEACHING OF GENERAL WOUND AND SKIN CARE AND PREVENTION RELATED TO POTENTIAL FOR OR ACTUAL ALTERED SKIN INTEGRITY.] Future Scheduled Test PAIN MANAG EMENT; RN TO ASSESS AND TEACH, MOTORBOAT OPERATOR/ELECTRICAL ENGINEERING DRAFTSPERSON TO OBSERVE AND TEACH AND PROVIDE EDUCATION ON PAIN MANAGEMENT TECHNIQUES. [code = PAIN MANAGEMENT; RN TO ASSESS AND TEACH, MOTORBOAT OPERATOR/ELECTRICAL ENGINEERING DRAFTSPERSON TO OBSERVE AND TEACH AND PROVIDE EDUCATION ON PAIN MANAGEMENT TECHNIQUES.] Future Scheduled Test DIABETES M ANAGEMENT; RN TO ASSESS AND TEACH, MOTORBOAT OPERATOR/ELECTRICAL ENGINEERING DRAFTSPERSON TO OBSERVE AND TEACH INSTRUCTIONS OF DIABETIC CARE TO INCLUDE: DIABETIC DIET, SKIN CARE, SIGNS AND SYMPTOMS OF HYPO/HYPERGLYCEMIA, PROPER ADMINISTRATION OF DIABETIC MEDICATION. RN/MOTORBOAT OPERATOR/ELECTRICAL ENGINEERING DRAFTSPERSON TO INSTRUCT ON DIABETIC FOOT CARE AND MONITOR FOR SKIN LESIONS ON LOWER EXTREMITIES. BLOOD GLUCOSE TESTING 3 TIMES DAILY AND PRN. RN TO ASSESS AND TEACH, MOTORBOAT OPERATOR/ELECTRICAL ENGINEERING DRAFTSPERSON TO OBSERVE AND TEACH PATIENT/CAREGIVER ABILITY TO PERFORM AND RECORD BLOOD GLUCOSE TESTING ORDERED AND TO REPORT ABNORMAL FINDINGS TO PHYSICIAN. RN/MOTORBOAT OPERATOR/ELECTRICAL ENGINEERING DRAFTSPERSON MAY PERFORM BLOOD GLUCOSE TEST NEEDED. RN/MOTORBOAT OPERATOR/ELECTRICAL ENGINEERING DRAFTSPERSON TO REPORT TO PHYSICIAN BLOOD GLUCOSE READINGS GREATER THAN 350 OR LESS THAN 70. RN/MOTORBOAT OPERATOR/ELECTRICAL ENGINEERING DRAFTSPERSON TO INSTRUCT PATIENT ON IMPORTANCE OF HGBA1C MONITORING, KIDNEY FUNCTION TEST, EYE AND FOOT EXAMS. [code = DIABETES MANAGEMENT; RN TO ASSESS AND TEACH, MOTORBOAT OPERATOR/ELECTRICAL ENGINEERING DRAFTSPERSON TO OBSERVE AND TEACH INSTRUCTIONS OF DIABETIC CARE TO INCLUDE: DIABETIC DIET, SKIN CARE, SIGNS AND SYMPTOMS OF HYPO/HYPERGLYCEMIA, PROPER ADMINISTRATION OF DIABETIC MEDICATION. RN/MOTORBOAT OPERATOR/ELECTRICAL ENGINEERING DRAFTSPERSON TO INSTRUCT ON DIABETIC FOOT CARE AND MONITOR FOR SKIN LESIONS ON LOWER EXTREMITIES. BLOOD GLUCOSE TESTING 3 TIMES DAILY AND PRN. RN TO ASSESS AND TEACH, MOTORBOAT OPERATOR/ELECTRICAL ENGINEERING DRAFTSPERSON TO OBSERVE AND TEACH PATIENT/CAREGIVER ABILITY TO PERFORM AND RECORD BLOOD GLUCOSE TESTING ORDERED AND TO REPORT ABNORMAL FINDINGS TO PHYSICIAN. RN/MOTORBOAT OPERATOR/ELECTRICAL ENGINEERING DRAFTSPERSON MAY PERFORM BLOOD GLUCOSE TEST NEEDED. RN/MOTORBOAT OPERATOR/ELECTRICAL ENGINEERING DRAFTSPERSON TO REPORT TO PHYSICIAN BLOOD GLUCOSE READINGS GREATER THAN 350 OR LESS THAN 70. RN/MOTORBOAT OPERATOR/ELECTRICAL ENGINEERING DRAFTSPERSON TO INSTRUCT PATIENT ON IMPORTANCE OF HGBA1C MONITORING, KIDNEY FUNCTION TEST, EYE AND FOOT EXAMS.] Future Scheduled Test CANCER MAN AGEMENT; RN TO ASSESS AND TEACH, MOTORBOAT OPERATOR/ELECTRICAL ENGINEERING DRAFTSPERSON TO OBSERVE AND TEACH AND PROVIDE EDUCATION ON CANCER. [code = CANCER MANAGEMENT; RN TO ASSESS AND TEACH, MOTORBOAT OPERATOR/ELECTRICAL ENGINEERING DRAFTSPERSON TO OBSERVE AND TEACH AND PROVIDE EDUCATION ON CANCER.] Future Scheduled Test FALL REDUC TION MANAGEMENT; RN TO ASSESS AND OBSERVE, ELECTRICAL ENGINEERING DRAFTSPERSON/MOTORBOAT OPERATOR TO OBSERVE FALL RISK FACTORS AND EDUCATE PATIENT/CAREGIVER ON STRATEGIES TO MINIMIZE THE RISK OF FALLING. [code = FALL REDUCTION MANAGEMENT; RN TO ASSESS AND OBSERVE, ELECTRICAL ENGINEERING DRAFTSPERSON/MOTORBOAT OPERATOR TO OBSERVE FALL RISK FACTORS AND EDUCATE PATIENT/CAREGIVER ON STRATEGIES TO MINIMIZE THE RISK OF FALLING.] Future Scheduled Test IV THERAPY MANAGEMENT; RN TO ASSESS AND TEACH, MOTORBOAT OPERATOR/ELECTRICAL ENGINEERING DRAFTSPERSON TO OBSERVE AND TEACH ON IV ACCESS SITE L CHEST HERNANDEZ, RESPONSE TO MEDICATION. RN/MOTORBOAT OPERATOR/ELECTRICAL ENGINEERING DRAFTSPERSON FOR SKILLED TEACHING REGARDING INFUSION PROCEDURE, CARE OF ACCESS DEVICE, SIGNS AND SYMPTOMS OF ACCESS DEVICE COMPLICATIONS AND, CARE AND USE OF INFUSION EQUIPMENT. [code = IV THERAPY MANAGEMENT; RN TO ASSESS AND TEACH, MOTORBOAT OPERATOR/ELECTRICAL ENGINEERING DRAFTSPERSON TO OBSERVE AND TEACH ON IV ACCESS SITE L CHEST HERNANDEZ, RESPONSE TO MEDICATION. RN/MOTORBOAT OPERATOR/ELECTRICAL ENGINEERING DRAFTSPERSON FOR SKILLED TEACHING REGARDING INFUSION PROCEDURE, CARE OF ACCESS DEVICE, SIGNS AND SYMPTOMS OF ACCESS DEVICE COMPLICATIONS AND, CARE AND USE OF INFUSION EQUIPMENT.] Future Scheduled Test IV THERAPY ADMINISTRATION; RN/ELECTRICAL ENGINEERING DRAFTSPERSON/MOTORBOAT OPERATOR TO MANAGE HERNANDEZ DRESSING. BIOPATCH PRN FOR REDNESS OR NEUTROPENIA. RN/ELECTRICAL ENGINEERING DRAFTSPERSON/MOTORBOAT OPERATOR TO PERFORM SITE CARE FOR INFUSION ACCESS DEVICE L CHEST HERNANDEZ WITH DRESSING CHANGE TO INCLUDE ONCE WEEKLY, RN/ELECTRICAL ENGINEERING DRAFTSPERSON/MOTORBOAT OPERATOR TO CLEANSE ACCESS SITE WITH ALCOHOL, ALLOW TO AIR DRY AND THEN APPLY DRESSING APPLIED BIOPATCH TO ACCESS SITE COVER WITH TEGADERM ONCE WEEKLY. [code = IV THERAPY ADMINISTRATION; RN/ELECTRICAL ENGINEERING DRAFTSPERSON/MOTORBOAT OPERATOR TO MANAGE HERNANDEZ DRESSING. BIOPATCH PRN FOR REDNESS OR NEUTROPENIA. RN/ELECTRICAL ENGINEERING DRAFTSPERSON/MOTORBOAT OPERATOR TO PERFORM SITE CARE FOR INFUSION ACCESS DEVICE L CHEST HERNANDEZ WITH DRESSING CHANGE TO INCLUDE ONCE WEEKLY, RN/ELECTRICAL ENGINEERING DRAFTSPERSON/MOTORBOAT OPERATOR TO CLEANSE ACCESS SITE WITH ALCOHOL, ALLOW TO AIR DRY AND THEN APPLY DRESSING APPLIED BIOPATCH TO ACCESS SITE COVER WITH TEGADERM ONCE WEEKLY.] Goal 2023-09-25 Patient Goal - F EEL [...] GET GOING WITH BREAST CANCER TREATMENT Goal 2024-08-10 Patient Goal - F EEL BETTER AND GET GOING WITH BREAST CANCER TREATMENT Goal 2024-10-10 Patient Goal - F EEL BETTER AND GET GOING WITH BREAST CANCER TREATMENT Goal 2024-12-07 Patient Goal - F EEL BETTER AND GET GOING WITH BREAST CANCER TREATMENT Goal 2025-02-08 Patient Goal - TO FINISH RJ MO Goal Patient Goal - STAY HEALTHY Goal 2023-10-13 Patient Goal - F EEL BETTER AND GET GOING WITH BREAST CANCER TREATMENT Goal 2024-02-10 Patient Goal - F EEL BETTER AND GET GOING WITH BREAST CANCER TREATMENT Goal Provider Goal - A PLAN OF CARE WILL BE ESTABLISHED THAT MEETS THE PATIENT S NEEDS. PATIENT WILL DEMONSTRATE OXYGEN SATURATION WITHIN NORMAL LIMITS OR PATIENT S OPTIMAL LEVEL ESTABLISHED BY THE PHYSICIAN THROUGHOUT [...] TAKE MEDICATIONS PRESCRIBED WITHOUT ADVERSE EFFECTS BY END OF EPISODE. Goal Provider Goal - COPD WILL BE CONTROLLED THROUGHOUT THE EPISODE. Goal Provider Goal - PATIENT / CAREGIVER WILL VERBALIZE/DEMONSTRATE UNDERSTANDING OF MEASURES TO MANAGE ALTERED CARDIOVASCULAR STATUS BY END OF EPISODE. Goal Provider Goal - CHANGES IN SKIN INTEGRITY STATUS WILL BE IDENTIFIED AND REPORTED TO THE PHYSICIAN FOR PROMPT INTERVENTION. PATIENT / CAREGIVER WILL VERBALIZE/DEMONSTRATE ADEQUATE KNOWLEDGE OF INTEGUMENTARY STATUS AND APPROPRIATE MEASURES TO PROMOTE SKIN INTEGRITY AND PREVENT INJURY BY END OF EPISODE. Goal Provider Goal - PATIENT / CAREGIVER WILL VERBALIZE / DEMONSTRATE UNDERSTANDING OF PAIN CONTROL MEASURES BY END OF EPISODE. Goal Provider Goal - PATIENT / CAREGIVER WILL VERBALIZE / DEMONSTRATE AN ABILITY TO ADHERE TO SELF-MANAGEMENT OF DIABETES MANAGEMENT BY END OF EPISODE. Goal Provider Goal - PATIENT / CAREGIVER WILL VERBALIZE/DEMONSTRATE UNDERSTANDING OF MEASURES TO MINIMIZE COMPLICATIONS AND REDUCE HOSPITALIZATION RELATED TO CANCER BY END OF EPISODE. Goal Provider Goal - PATIENT/CAREGIVER WILL VERBALIZE/DEMONSTRATE UNDERSTANDING OF FALL RISK FACTORS AND IMPLEMENT STRATEGIES TO MINIMIZE FALL RISK. PATIENT/CAREGIVER WILL VERBALIZE/DEMONSTRATE AN ABILITY TO ADHERE TO FALL REDUCTION SELF-MANAGEMENT AND LIFE-STYLE CHANGES BY END OF EPISODE. Goal Provider Goal - PATIENT / CAREGIVER WILL VERBALIZE/DEMONSTRATE ABILITY TO CARE FOR ADMINISTER IV ADEQUATELY BY END OF EPISODE. Goal Provider Goal - PATIENT WILL VERBALIZE/DEMONSTRATE TOLERANCE TO INFUSION PROCEDURE BY END OF EPISODE. Encounters Start Date/Time End Date/Time Encounter Type Admission Type Attending [facility] [place] Care Department Encounter ID Discharge Date Discharge Status Discharge Condition Discharge Reason Percent Goals Met 2025-02-09 00:00:00 2025-04-09 00:00:00 Outpatient RECERTIFIC ATJARAD RIOS [facility] [id number]
== END 2025-04-04 11:37 | disposition home or self-care (01) ==
LOC: HO.HOS 11:12
PROVIDERS: PCP Internal Medicine Endocrinology, Diabetes & Metabolism; Visit Provider Orthopaedic Surgery
DX: M17.0 Bilateral primary osteoarthritis of knee (principal)
CPT/HCPCS: 20610; 99213

== ENCOUNTER → 2025-04-04 11:11 | Outpatient (BNVA) | payer MEDICARE, BC, SELFPAY | PROVIDERS: PCP Internal Medicine Endocrinology, Diabetes & Metabolism; Visit Provider Orthopaedic Surgery | DX: M17.0 Bilateral primary osteoarthritis of knee (principal) | CPT/HCPCS: 20610; 99212; J1010; J2003 ==